=== PATIENT | female | born 1955 | race Caucasian/White ===

== ENCOUNTER 2024-07-29 15:23 | Observation (INO) | payer MEDICARE, SELFPAY ==
[2024-07-29] VITALS (12 sets, daily range): BP systolic 132–142; BP diastolic 70–82; PULSE 86–131; TEMP 36.6–36.8; O2SAT 91–94; BMI 54.9; BMI 56.2
--- NOTE | 2024-07-29 15:26 | ECG_ITS ---
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
--- NOTE | 2024-07-29 15:26 | XR_ITS ---
The [address] [address] Patient Name: TONIO CONN MRN: [id number] date: 1955 Sex: F Assigned Patient Location: ED.MAIN Current Patient Location: ED.MAIN Accession/Order Number: [id number] Exam Date: 07/29/2024 16:40 Report Date: 07/29/2024 18:18 At the request of: GM RODRIGUEZ Procedure: XR chest 1V EXAM: XR chest 1V HISTORY: sob COMPARISON: 10/12/2020 TECHNIQUE: Chest X-ray AP, 1 view FINDINGS: Support devices: None. Lungs/pleura: Right lower lobe airspace opacity, representing pneumonia. No effusion, or pneumothorax. Heart and mediastinum: Normal contours. Bones: No acute abnormality identified. XR/XR chest 1V Impression: Right lower lobar pneumonia. Electronically authenticated by: WILNER LOPEZ Date: 07/29/2024 18:18
[2024-07-29 15:47] LABS: Basophils Percent Auto 0.2 % (0.2-2.0); Hematocrit 41.6 % (36.0-48.0); Hemoglobin 13.6 g/dL (12.0-16.0); Immature Granulocytes Abs Auto 0.01 10^3/uL (0.00-0.03); Immature Granulocytes Pct Auto 0.2 % (0.0-0.5); Lymphocytes Absolute Auto 0.8 10^3/uL (1.2-3.8); Mean Corpuscular HGB Conc 32.7 g/dL (29.9-35.2); Mean Corpuscular Hemoglobin 32.4 pg (26.7-34.0); Mean Platelet Volume 8.8 fL (9.5-13.5); Monocytes Absolute Auto 0.5 10^3/uL (0.3-0.8); Monocytes Percent Auto 8.6 % (1.7-12.0); Neutrophils Absolute Auto 4.6 10^3/uL (1.4-6.5); Platelet Count 195 10^3/uL (150-450); Red Cell Distribution Width 13.2 % (11.0-15.0); White Blood Count 5.9 10^3/uL (4.0-11.0)
[2024-07-29] MEDS: IPRATROPIUM/ALBUTEROL SULFATE 3 ML AMPUL.NEB IH ×3 (15:54→23:39)
[2024-07-29 15:59] LABS: INR 1.09; Prothrombin Time 11.5 sec (9.0-11.6)
[2024-07-29 16:06] LABS: Alanine Aminotransferase 23 U/L (14-59); Albumin Globulin Ratio 0.8; Albumin Level 2.9 g/dL (3.4-5.0); Alkaline Phosphatase 97 U/L (46-116); Anion Gap 12.2; Aspartate Amino Transferase 23 U/L (15-37); BUN Creatinine Ratio 14.7; Bilirubin Total 0.4 mg/dL (0.2-1.0); Calcium 8.5 mg/dL (8.5-10.1); Carbon Dioxide 30.2 mmol/L (21.0-32.0); Chloride 103 mmol/L (98-107); Estimated GFR (African America >60 (>=60 mL/min/1.73m^2); Estimated GFR (Non-African Ame 53 (>=60 mL/min/1.73m^2); Globulin 3.7 g/dL; Glucose 131 mg/dL (74-106); Potassium 4.4 mmol/L (3.5-5.1); Sodium 141 mmol/L (136-145); Total Protein 6.6 g/dL (6.4-8.2)
[2024-07-29 16:14] LABS: Troponin I High Sensitivity 30.8 pg/mL (4.0-51.3)
[2024-07-29] MEDS: METHYLPREDNISOLONE SOD SUCC PF 125 MG/2 ML VIAL IVP ×2 (16:37→20:27)
[2024-07-29] MEDS: MAGNESIUM SULFATE IN WATER 2 GM/50 ML PREMIX IV (16:37)
--- NOTE | 2024-07-29 17:01 | ED.SOB1 ---
HPI - SOB/Dyspnea General Chief Complaint: Shortness of Breath/Dyspnea Stated Complaint: SOB Time Seen by Provider: 07/29/24 15:25 Source: patient Mode of arrival: ambulance Limitations: no limitations History of Present Illness HPI Narrative: The patient have history of asthma is coming to the ER with 3 days of shortness of breath, patient brought to us by the EMS she was found to be wheezing upon arrival and they provided her with a breathing treatment, the patient has been using her inhaler for the last few days and it not helping, he is also have a cough that is productive she is denying any fever or chills or any runny nose She also denies any chest pain or any nausea or vomiting or any abdominal pain Related Data Home Medications ?Medication ?Instructions ?Recorded ?Confirmed apixaban 5 mg tablet (Eliquis) 5 mg PO BID 07/29/24 07/29/24 aspirin 81 mg chewable tablet 1 tab PO DAILY 07/29/24 07/29/24 atorvastatin 40 mg tablet 40 mg PO DAILY 07/29/24 07/29/24 fluoxetine 20 mg capsule 20 mg PO DAILY 07/29/24 07/29/24 hydrochlorothiazide 25 mg tablet 25 mg PO DAILY 07/29/24 07/29/24 lisinopril 40 mg tablet 40 mg PO DAILY 07/29/24 07/29/24 Allergies Allergy/AdvReac Type Severity Reaction Status Date / Time cephalexin (From Keflex) Allergy Unknown Unknown Verified 07/29/24 15:33 ciprofloxacin Allergy Unknown Unknown Verified 07/29/24 15:33 clindamycin Allergy Unknown Unknown Verified 07/29/24 15:33 Review of Systems ROS Status of ROS 10 or more systems reviewed and unremarkable except as noted in history and below PFSH PFSH Social History Little interest or pleasure in doing things: not at all Feeling down, depressed, or hopeless: not at all Exam Narrative Exam Narrative: Nurses notes and vital signs reviewed and patient is not hypoxic. General: Well-appearing and in no apparent distress. Skin: Warm, dry, no pallor noted. No rash. Head: Normocephalic, atraumatic. Neck: Supple, non-tender. Eye: Pupils are equal, round and EOMI. No scleral icterus. Cardiovascular: Regular Rate and Rhythm without murmur, gallop or rub. Respiratory: The patient is tachypneic upon arrival and there is audible wheezes as she have expiratory lung wheezes bilaterally with rhonchi mostly in the right side in the bases. Back: No midline thoracic or lumbar vertebral tenderness. No CVA tenderness Musculoskeletal: normal ROM, no calf or popliteal tenderness, no lower extremity edema/swelling GI: Abdomen is soft, non-distended. Normal bowel sounds. No masses appreciated. No tenderness to palpation. No rebound, guarding, or rigidity noted. Constitutional Vital Signs, click to edit/add: Last Vital Signs Temp 98 F 07/29/24 15:27 Pulse 97 H 07/29/24 16:30 Resp 15 07/29/24 16:30 BP 142/80 H 07/29/24 15:27 Pulse Ox 92 L 07/29/24 16:30 O2 Del Method Room Air 07/29/24 15:27 Course Vital Signs Vital signs: Vital Signs Temperature 98 F 07/29/24 15:27 Pulse Rate 125 H 07/29/24 15:27 Respiratory Rate 28 H 07/29/24 15:27 Blood Pressure 142/80 H 07/29/24 15:27 Pulse Oximetry 93 L 07/29/24 15:27 Oxygen Delivery Method Room Air 07/29/24 15:27 Temperature 98 F 07/29/24 15:27 Pulse Rate 97 H 07/29/24 16:30 Respiratory Rate 15 07/29/24 16:30 Blood Pressure 142/80 H 07/29/24 15:27 Pulse Oximetry 92 L 07/29/24 16:30 Oxygen Delivery Method Room Air 07/29/24 15:27 MDM - SOB/Dyspnea MDM Narrative Medical decision making narrative: The patient presents to us with an obvious moderate asthma exacerbation, ox was 91% and she was tachypneic upon arrival Patient CBC showed no acute pathology chemistry was within normal The patient EKG in the ER showing sinus rhythm with a heart rate of [address] elevation or depression Patient is presenting with an obvious infection that causing asthma exacerbation Chest x-ray shows an obvious right lung infiltrate and the patient was started on azithromycin Patient also provided with Solu-Medrol magnesium IV and 2 breathing treatment including the 1 by the EMS and the patient still audibly wheezing although saturating better Patient will be admitted for further evaluation of asthma exacerbation and pneumonia PT Case discussed with Dr. Marrero and he agreed on admitting the patient for the above-mentioned plan Lab Data Labs: Lab Results 07/29/24 Range/Units 15:38 WBC 5.9 (4.0-11.0) 10^3/uL RBC 4.20 (4.20-5.40) 10^6/uL Hgb 13.6 (12.0-16.0) g/dL Hct 41.6 (36.0-48.0) % MCV 99.0 (81.0-99.0) fL MCH 32.4 (26.7-34.0) pg MCHC 32.7 (29.9-35.2) g/dL RDW 13.2 (11.0-15.0) % Plt Count 195 (150-450) 10^3/uL MPV 8.8 L (9.5-13.5) fL Neut % (Auto) 78.0 H (43.0-75.0) % Lymph % (Auto) 13.0 L (20.5-60.0) % [place] % (Auto) 8.6 (1.7-12.0) % Eos % (Auto) 0.0 L (0.9-7.0) % Baso % (Auto) 0.2 (0.2-2.0) % Neut # (Auto) 4.6 (1.4-6.5) 10^3/uL Lymph # (Auto) 0.8 L (1.2-3.8) 10^3/uL [place] # (Auto) 0.5 (0.3-0.8) 10^3/uL Eos # (Auto) 0.0 (0.0-0.7) 10^3/uL Baso # (Auto) 0.0 (0.0-0.1) 10^3/uL Abs Immat Gran (auto) 0.01 (0.00-0.03) 10^3/uL Imm/Tot Granulo (auto) 0.2 (0.0-0.5) % PT 11.5 (9.0-11.6) sec INR 1.09 Sodium 141 (136-145) mmol/L Potassium 4.4 (3.5-5.1) mmol/L Chloride 103 (98-107) mmol/L Carbon Dioxide 30.2 (21.0-32.0) mmol/L Anion Gap 12.2 BUN 15.0 (7.0-18.0) mg/dL Creatinine 1.02 (0.55-1.02) mg/dL Est GFR ( Amer) >60 (>=60 mL/min/1.73m^2) Est GFR (Non-Af Amer) 53 L (>=60 mL/min/1.73m^2) BUN/Creatinine Ratio 14.7 Glucose 131 H (74-106) mg/dL Calcium 8.5 (8.5-10.1) mg/dL Total Bilirubin 0.4 (0.2-1.0) mg/dL AST 23 (15-37) U/L ALT 23 (14-59) U/L Alkaline Phosphatase 97 (46-116) U/L Troponin I High Sens 30.8 (4.0-51.3) pg/mL Total Protein 6.6 (6.4-8.2) g/dL Albumin 2.9 L (3.4-5.0) g/dL Globulin 3.7 g/dL Albumin/Globulin Ratio 0.8 Discharge Plan Discharge Chief Complaint: Shortness of Breath/Dyspnea Clinical Impression: Asthma exacerbation, Pneumonia Patient Disposition: Admitted As Inpatient Time of Disposition Decision: 17:03
[2024-07-29 17:12] LABS: Influenza Virus A Antigen Negative; Influenza Virus B Antigen Negative; Internal Control Within Normal Limits; SARS-CoV-2 Ag NEGATIVE (NEGATIVE)
[2024-07-29] MEDS: AZITHROMYCIN 500 MG in 0.9 % SODIUM CHLORIDE 250 ML 250 MG IV (17:30)
[2024-07-29 18:48] LABS: Lactate/Lactic Acid 1.4 mmol/L (0.4-2.0)
--- NOTE | 2024-07-29 18:57 | P.HP_ITS ---
HPI H&P: HPI History of Present Illness Chief complaint: SOB Narrative: Patient presented to the emergency with increasing shortness of breath. Found to be tachycardic and respiratory distress is a normal white blood cell count but with a significant left shift, found to have acute exacerbation of asthma is admitted for workup and treatment of same I saw patient in the emergency room, she was resting comfortably in the cot, some mild conversational dyspnea some tachycardia, patient denies chest pain Opioid HPI Opioid Management Most Recent Pain and Opioid Data: No Data to Display [facility] Medical History (Updated 07/29/24 @ 17:34 by Sofya Gaytan RN) Asthma ?J45.909 - Unspecified asthma, uncomplicated (ICD-10) Hypertension ?I10 - Essential (primary) hypertension (ICD-10) Social History Little interest or pleasure in doing things: not at all Feeling down, depressed, or hopeless: not at all Meds Home Medications and Allergies Home Medications ?Medication ?Instructions ?Recorded ?Confirmed ?Type apixaban 5 mg tablet (Eliquis) 5 mg PO BID 07/29/24 07/29/24 History aspirin 81 mg chewable tablet 1 tab PO DAILY 07/29/24 07/29/24 History atorvastatin 40 mg tablet 40 mg PO DAILY 07/29/24 07/29/24 History fluoxetine 20 mg capsule 20 mg PO DAILY 07/29/24 07/29/24 History hydrochlorothiazide 25 mg tablet 25 mg PO DAILY 07/29/24 07/29/24 History lisinopril 40 mg tablet 40 mg PO DAILY 07/29/24 07/29/24 History Allergies Allergy/AdvReac Type Severity Reaction Status Date / Time cephalexin (From Keflex) Allergy Unknown Unknown Verified 07/29/24 15:33 ciprofloxacin Allergy Unknown Unknown Verified 07/29/24 15:33 clindamycin Allergy Unknown Unknown Verified 07/29/24 15:33 Exam Constitutional Vital Signs, click to edit/add: Last Vital Signs Temp 98 F 07/29/24 15:27 Pulse 91 H 07/29/24 17:33 Resp 17 07/29/24 17:33 BP 132/82 07/29/24 17:33 Pulse Ox 92 L 07/29/24 17:33 O2 Del Method Room Air 07/29/24 15:27 Documenting provider has reviewed patient's vital signs: yes Common normals: apparent distress (Mild conversational dyspnea) Respiratory Common normals: abnormal respiratory effort (Mild conversational dyspnea) and not clear to ascultation bilaterally Auscultation: rhonchi and wheezes Cardio Common normals: regular rhythm; irregular rate Rate: tachycardic Results Labs Labs: Short CBC 07/29/24 Range/Units 15:38 WBC 5.9 (4.0-11.0) 10^3/uL Hgb 13.6 (12.0-16.0) g/dL Hct 41.6 (36.0-48.0) % Plt Count 195 (150-450) 10^3/uL BMP 07/29/24 15:38 Sodium 141 Potassium 4.4 Chloride 103 Carbon Dioxide 30.2 BUN 15.0 Creatinine 1.02 Glucose 131 H Calcium 8.5 Liver Function 07/29/24 Range/Units 15:38 Total Bilirubin 0.4 (0.2-1.0) mg/dL AST 23 (15-37) U/L ALT 23 (14-59) U/L Alkaline Phosphatase 97 (46-116) U/L Albumin 2.9 L (3.4-5.0) g/dL Assessment and Plan Assessment and Plan (1) Pneumonia: (2) Asthma exacerbation: Plan Admission findings: Tachycardia, respiratory distress, white blood cell count normal but with significant left shift consistent with bacterial process, due to pneumonia causing an acute exacerbation of asthma Pneumonia with resultant acute exacerbation of asthma-steroids, antibiotics, frequent aerosol treatments, try to obtain sputum culture, consider repeat chest x-ray Long-term use of anticoagulants-continue Hypercholesterolemia continue with current medications Hypertension-continue with current medications Depression-continue current medications Admission status: Patient with acute exacerbation of asthma secondary to pneumonia but no hypoxia will start patient off in the observational time period. If improved tomorrow possible discharge to home tomorrow, if not improved tomorrow then medically necessary treatment will span 2 midnights and she will be changed to inpatient status
[2024-07-30] VITALS (15 sets, daily range): BP systolic 123–155; BP diastolic 68–83; PULSE 20–102; TEMP 36.3–36.9; O2SAT 90–98
[2024-07-30] MEDS: METHYLPREDNISOLONE SOD SUCC PF 125 MG/2 ML VIAL IVP ×4 (03:57→21:15)
[2024-07-30] MEDS: IPRATROPIUM/ALBUTEROL SULFATE 3 ML AMPUL.NEB IH ×6 (04:00→23:40)
--- NOTE | 2024-07-30 05:45 | P.PN_ITS ---
Progress Note: Subjective Subjective Interval history: She does feel somewhat better today. Still with significant cough, has not been up ambulating Exam Constitutional Vital Signs, click to edit/add: Last Vital Signs Temp 97.7 F 07/30/24 04:00 Pulse 80 07/30/24 04:01 Resp 18 07/30/24 04:01 BP 142/79 H 07/30/24 04:00 Pulse Ox 92 L 07/30/24 04:01 O2 Del Method Room Air 07/30/24 04:01 Documenting provider has reviewed patient's vital signs: yes Common normals: no apparent distress (Mild conversational dyspnea resolved) Respiratory Common normals: normal respiratory effort (Mild conversational dyspnea resolved); not clear to ascultation bilaterally Auscultation: rhonchi (Persisting but better air exchange) and wheezes (Better air exchange) Cardio Common normals: regular rhythm; irregular rate Rate: tachycardic Progress Note: Objective Labs Labs: Short CBC 07/29/24 Range/Units 15:38 WBC 5.9 (4.0-11.0) 10^3/uL Hgb 13.6 (12.0-16.0) g/dL Hct 41.6 (36.0-48.0) % Plt Count 195 (150-450) 10^3/uL BMP 07/29/24 15:38 Sodium 141 Potassium 4.4 Chloride 103 Carbon Dioxide 30.2 BUN 15.0 Creatinine 1.02 Glucose 131 H Calcium 8.5 Liver Function 07/29/24 Range/Units 15:38 Total Bilirubin 0.4 (0.2-1.0) mg/dL AST 23 (15-37) U/L ALT 23 (14-59) U/L Alkaline Phosphatase 97 (46-116) U/L Albumin 2.9 L (3.4-5.0) g/dL Progress Note: A&P Assessment and Plan (1) Pneumonia: (2) Asthma exacerbation: Plan Admission findings: Tachycardia, respiratory distress, white blood cell count normal but with significant left shift consistent with bacterial process, due to pneumonia causing an acute exacerbation of asthma Right lower lobe pneumonia with resultant acute exacerbation of asthma-steroids, antibiotics, frequent aerosol treatments, try to obtain sputum culture,-if improved later today possible discharge to home, if not she will need to be changed to inpatient status as medically necessary treatment will span 2 midnights Long-term use of anticoagulants-continue Hyperglycemia secondary to steroids Acute elevation in BNP-improved actually this morning, maintain current treatment plan Hypercholesterolemia continue with current medications Hypertension-continue with current medications Depression-continue current medications Admission status: Patient with acute exacerbation of asthma secondary to pneumonia but no hypoxia will start patient off in the observational time period. If improved tomorrow possible discharge to home tomorrow, if not improved tomorrow then medically necessary treatment will span 2 midnights and she will be changed to inpatient status ?
[2024-07-30 05:51] LABS: Alanine Aminotransferase 24 U/L (14-59); Albumin Globulin Ratio 0.8; Alkaline Phosphatase 99 U/L (46-116); Anion Gap 14.5; Aspartate Amino Transferase 17 U/L (15-37); BUN Creatinine Ratio 17.6; Bilirubin Total 0.3 mg/dL (0.2-1.0); Calcium 8.8 mg/dL (8.5-10.1); Carbon Dioxide 27.4 mmol/L (21.0-32.0); Chloride 103 mmol/L (98-107); Estimated GFR (African America >60 (>=60 mL/min/1.73m^2); Estimated GFR (Non-African Ame 53 (>=60 mL/min/1.73m^2); Globulin 3.9 g/dL; Glucose 199 mg/dL (74-106); Magnesium 2.1 mg/dL (1.8-2.4); Potassium 3.9 mmol/L (3.5-5.1); Sodium 141 mmol/L (136-145); Total Protein 6.9 g/dL (6.4-8.2)
[2024-07-30 06:58] LABS: Hematocrit 43.2 % (36.0-48.0); Hemoglobin 14.1 g/dL (12.0-16.0); Mean Corpuscular HGB Conc 32.6 g/dL (29.9-35.2); Mean Corpuscular Volume 98.2 fL (81.0-99.0); Mean Platelet Volume 9.5 fL (9.5-13.5); Platelet Count 190 10^3/uL (150-450); Red Cell Distribution Width 13.2 % (11.0-15.0); White Blood Count 3.4 10^3/uL (4.0-11.0)
[2024-07-30 07:30] LABS: Lymphocytes Absolute Manual 0.27 10^3/uL (1.20-3.80); Monocytes Absolute Manual 0.13 10^3/uL (0.30-0.80); Segmented Neut Absolute Manual 2.99 10^3/uL (1.4-6.5)
--- NOTE | 2024-07-30 08:33 | CM.NOTE ---
Rounds made with Dr. Marrero. Dr. Marrero reviews plan of care. Potential discharge if HR remains stable and ambulating without issues. Verbalizes understanding.
[2024-07-30] MEDS: ASPIRIN 81 MG TAB.CHEW PO (09:10)
[2024-07-30] MEDS: DILTIAZEM HCL 180 MG CAP.ER.24H PO (09:10)
[2024-07-30] MEDS: FLUOXETINE HCL 20 MG CAPSULE PO (09:10)
[2024-07-30] MEDS: HYDROCHLOROTHIAZIDE 25 MG TABLET PO (09:11)
[2024-07-30] MEDS: LISINOPRIL 20 MG TABLET 40 MG PO (09:11)
[2024-07-30] MEDS: ATORVASTATIN CALCIUM 40 MG TABLET PO (09:11)
[2024-07-30] MEDS: APIXABAN 5 MG TABLET PO ×2 (09:11→21:15)
--- NOTE | 2024-07-30 10:50 | SWNOTE1 ---
Medicare Outpatient Observation Notice reviewed and discussed with patient. Pt. verbalized understanding and signed the form. Original given to patient and copy placed in patient?s chart.
--- NOTE | 2024-07-30 10:51 | SWNOTE1 ---
SW met with pt to discuss dc needs. Pt lives at home alone. She has a neighbor friend who helps as needed. Pt has a walker that she takes with her to the store and restaurants, but normally does not use DME in the home. Pt lives in 2 story home, has a chair lift to go up and down. Lately pt has had her groceries delivered as she feels short of breath when walking around. Pt does still drive. At this time pt's only concern is her shortness of breath. Pt is not on oxygen at this time. She does have an inhaler, as she does have asthma. Pt voiced about 5 years ago she was at hospital for same thing. SW to follow as needed. SW to review therapy notes as well.
--- NOTE | 2024-07-30 11:34 | SWNOTE1 ---
SW reviewed OT note, no needs identified.
--- NOTE | 2024-07-30 13:29 | SWNOTE1 ---
SW reviewed PT note as well and pt independent, no needs identified.
[2024-07-30] MEDS: AZITHROMYCIN 500 MG in 0.9 % SODIUM CHLORIDE 250 ML 125 MG IV (13:46)
[2024-07-31] MEDS: METHYLPREDNISOLONE SOD SUCC PF 125 MG/2 ML VIAL IVP ×2 (03:37→08:03)
[2024-07-31 03:54] VITALS: PULSE 96; O2SAT 94
[2024-07-31] MEDS: IPRATROPIUM/ALBUTEROL SULFATE 3 ML AMPUL.NEB IH ×2 (03:54→07:11)
[2024-07-31 04:00] VITALS: BP 142/79; PULSE 81; TEMP 36.4; O2SAT 93
[2024-07-31 04:04] VITALS: PULSE 80; O2SAT 96
[2024-07-31 05:52] LABS: Hematocrit 41.3 % (36.0-48.0); Hemoglobin 13.6 g/dL (12.0-16.0); Immature Granulocytes Abs Auto 0.02 10^3/uL (0.00-0.03); Immature Granulocytes Pct Auto 0.2 % (0.0-0.5); Lymphocytes Absolute Auto 0.5 10^3/uL (1.2-3.8); Lymphocytes Percent Auto 5.2 % (20.5-60.0); Mean Corpuscular HGB Conc 32.9 g/dL (29.9-35.2); Mean Corpuscular Hemoglobin 31.9 pg (26.7-34.0); Mean Corpuscular Volume 96.7 fL (81.0-99.0); Mean Platelet Volume 9.4 fL (9.5-13.5); Monocytes Absolute Auto 0.1 10^3/uL (0.3-0.8); Monocytes Percent Auto 1.6 % (1.7-12.0); Neutrophils Absolute Auto 8.2 10^3/uL (1.4-6.5); Platelet Count 206 10^3/uL (150-450); Red Blood Count 4.27 10^6/uL (4.20-5.40); Red Cell Distribution Width 13.2 % (11.0-15.0); White Blood Count 8.8 10^3/uL (4.0-11.0)
--- NOTE | 2024-07-31 06:07 | P.DS_ITS ---
DS: Providers Provider Date of admission: 07/30/24 16:00 Primary care physician: Alexander Marrero MD Consults: 07/29/24 18:00 Occupational Therapy Eval and Treat Routine Reason for consultation: Only if needed for Rehab Has provider been notified: No Physical Therapy Eval and Treat Routine Reason for consultation: Eval and Treat Has provider been notified: No DS: Diagnosis Discharge Diagnosis (1) Pneumonia: (2) Asthma exacerbation: Plan Admission findings: Tachycardia, respiratory distress, white blood cell count normal but with significant left shift consistent with bacterial process, due to pneumonia causing an acute exacerbation of asthma Right lower lobe pneumonia with resultant acute exacerbation of asthma-steroids, antibiotics, frequent aerosol treatments, try to obtain sputum culture,-if improved later today possible discharge to home, if not she will need to be changed to inpatient status as medically necessary treatment will span 2 midnights Long-term use of anticoagulants-continue Hyperglycemia secondary to steroids Acute elevation in BNP-improved actually this morning, maintain current treatment plan Hypercholesterolemia continue with current medications Hypertension-continue with current medications Depression-continue current medications Admission status: Patient with acute exacerbation of asthma secondary to pneumonia but no hypoxia will start patient off in the observational time period. If improved tomorrow possible discharge to home tomorrow, if not improved tomorrow then medically necessary treatment will span 2 midnights and she will be changed to inpatient status DS: Summary Hospital Course Hospital Course: Admitted initially to observation status secondary to acute exacerbation of asthma from upper lobe pneumonia on the right side, patient was treated with IV antibiotics, steroids, frequent aerosol treatments, she never became hypoxic but did still have significant dyspnea with activity, was recommended she stay an additional day secondary to the dyspnea and likely potential progression to severe asthma attack, she does not have a home nebulizer currently. She is im proved today. Recommendation was to change patient to inpatient status secondary to medically necessary treatment spanning 2 midnights. Uncertain if that happened. At this point she is medically stable will discharge patient to home in improving condition. Medications see list. And see me in the office either later this week or next, nebulizer and medication sent to pharmacy Status at Discharge Overall status at discharge: patient is not back to baseline Time Spent with Patient Time attestation: Total time spent providing and/or coordinating discharge services: Time spent: greater than 30 minutes Exam Constitutional Vital Signs, click to edit/add: Last Vital Signs Temp 97.5 F L 07/31/24 04:00 Pulse 80 07/31/24 04:04 Resp 18 07/31/24 04:04 BP 142/79 H 07/31/24 04:00 Pulse Ox 96 07/31/24 04:04 O2 Del Method Room Air 07/31/24 04:04 Documenting provider has reviewed patient's vital signs: yes Common normals: no apparent distress (Mild conversational dyspnea resolved) Respiratory Common normals: normal respiratory effort (Mild conversational dyspnea resolved) and clear to auscultation bilaterally (Much improved air exchange, no wheeze but just had breathing treatment) Auscultation: rhonchi (Persisting but better air exchange); no wheezes (Better air exchange) Cardio Common normals: regular rhythm; irregular rate Rate: tachycardic DS: Data Data Completed and Pending Labs on day of discharge: Labs from last 24 hours 07/31/24 07/30/24 05:08 05:17 WBC 8.8 3.4 L RBC 4.27 4.40 Hgb 13.6 14.1 Hct 41.3 43.2 MCV 96.7 98.2 MCH 31.9 32.0 MCHC 32.9 32.6 RDW 13.2 13.2 Plt Count 206 190 MPV 9.4 L 9.5 Neut % (Auto) 93.0 H Lymph % (Auto) 5.2 L [place] % (Auto) 1.6 L Eos % (Auto) 0.0 L Baso % (Auto) 0.0 L Neut # (Auto) 8.2 H Lymph # (Auto) 0.5 L [place] # (Auto) 0.1 L Eos # (Auto) 0.0 Baso # (Auto) 0.0 Abs Immat Gran (auto) 0.02 Seg Neuts % (Manual) 88.0 H Lymphocytes % (Manual) 8.0 L Monocytes % (Manual) 4.0 Eosinophils % (Manual) 0.0 L Basophils % (Manual) 0.0 L Imm/Tot Granulo (auto) 0.2 Neutrophils # (Manual) 2.99 Lymphocytes # (Manual) 0.27 L Monocytes # (Manual) 0.13 L Eosinophils # (Manual) 0.00 Basophils # (Manual) 0.00 NT-Pro-B Natriuret Pep 1635.0 H* Discharge Plan Discharge Disposition: Home, Self-Care Discharge Medications: New prednisone 10 mg tablet 50 mg PO DAILY Qty: 47 0RF Rx Instructions: 5/day for 3 days. 4/day for 3 days, 3/day for 3 days, 2/day for 3 days, 1/day for 3 days, 1/2 /day for 4 days albuterol sulfate [Ventolin HFA] 90 mcg/actuation HFA aerosol inhaler 2 inh inhalation Q6H PRN (Reason: shortness of breath or wheezing) Qty: 8.5 0RF azithromycin 500 mg tablet 500 mg PO DAILY 3 Days Qty: 3 0RF (DME) nebulizer and compressor Device See Rx Instructions .Route Qty: 1 0RF Rx Instructions: As directed albuterol sulfate 2.5 mg/0.5 mL solution for nebulization 2.5 mg inhalation Q6H PRN (Reason: bronchospasm) Qty: 30 11RF Continued Eliquis 5 mg tablet 5 mg PO BID aspirin 81 mg tablet,chewable 1 tab PO DAILY atorvastatin 40 mg tablet 40 mg PO DAILY fluoxetine 20 mg capsule 20 mg PO DAILY hydrochlorothiazide 25 mg tablet 25 mg PO DAILY lisinopril 40 mg tablet 40 mg PO DAILY diltiazem HCl [Cartia XT] 180 mg capsule,extended release 24hr 180 mg PO DAILY Activity: increase activity as tolerated Diet: advance to your usual diet Print Language: Palestinian Patient Instructions: Asthma (DC), Pneumonia (DC) Forms: Portal Instructions Follow Up Appointments: @ 10am with Dr. Marrero [phone] Discharge Date/Time: 07/31/24 11:24
[2024-07-31 06:26] LABS: Potassium 3.5 mmol/L (3.5-5.1); Sodium 139 mmol/L (136-145)
[2024-07-31 06:27] LABS: BUN Creatinine Ratio 26.2; Calcium 9.1 mg/dL (8.5-10.1); Carbon Dioxide 26.5 mmol/L (21.0-32.0); Chloride 103 mmol/L (98-107); Estimated GFR (African America >60 (>=60 mL/min/1.73m^2); Estimated GFR (Non-African Ame 53 (>=60 mL/min/1.73m^2); Glucose 210 mg/dL (74-106)
[2024-07-31 07:13] VITALS: PULSE 89; O2SAT 92
[2024-07-31 07:54] VITALS: BP 155/77; PULSE 74; TEMP 36.6; O2SAT 94
[2024-07-31] MEDS: ACETAMINOPHEN 500 MG TABLET 1000 MG PO (08:07)
--- NOTE | 2024-07-31 08:45 | CM.NOTE ---
Rounds made with Dr. Marrero, pt will discharge to home on P.O antibiotics and nebulizer with treatments. Pt will f/u with PCP.
--- NOTE | 2024-07-31 08:57 | CM.NOTE ---
Dr. 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
--- NOTE | 2024-07-31 09:28 | CM.NOTE ---
Important Message From Medicare discussed with pt, pt verbalizes understanding and signs paper. Original given to pt and copy placed on pt's chart.
[2024-07-31] MEDS: HYDROCHLOROTHIAZIDE 25 MG TABLET PO (10:23)
[2024-07-31] MEDS: ASPIRIN 81 MG TAB.CHEW PO (10:23)
[2024-07-31] MEDS: FLUOXETINE HCL 20 MG CAPSULE PO (10:23)
[2024-07-31] MEDS: ATORVASTATIN CALCIUM 40 MG TABLET PO (10:23)
[2024-07-31] MEDS: DILTIAZEM HCL 180 MG CAP.ER.24H PO (10:24)
[2024-07-31] MEDS: APIXABAN 5 MG TABLET PO (10:24)
[2024-07-31] MEDS: LISINOPRIL 20 MG TABLET 40 MG PO (10:24)
--- NOTE | 2024-08-01 15:06 | CM.DCFOLLOWU ---
Person spoke with:patient How are you feeling?well How is your pain?none Did you understand your discharge instructions?yes Do you have any questions about your discharge instructions? no Were you given any prescriptions at discharge?yes Were you able to get your prescriptions filled?yes Do you understand how to take your medications as ordered?yes Do you have any questions about your follow up appointment and do you plan to keep your follow up appointment? no questions, follow up reviewed Is there anything else that you would like to discuss?no Questions/Comments/Concerns/Other:none
== END 2024-07-31 11:24 | disposition home or self-care (01) ==
LOC: ER 17:49 → MS 07-30 06:01
PROVIDERS: Admitting Provider Family Medicine; Emergency Provider Emergency Medicine; PCP Family Medicine; Visit Provider Family Medicine
DX: J18.9 Pneumonia, unspecified organism (principal); J45.901 Unspecified asthma with (acute) exacerbation; I10 Essential (primary) hypertension; R00.0 Tachycardia, unspecified; R06.03 Acute respiratory distress; Z79.01 Long term (current) use of anticoagulants; E78.00 Pure hypercholesterolemia, unspecified; F32.A Depression, unspecified; R73.9 Hyperglycemia, unspecified; R79.89 Other specified abnormal findings of blood chemistry; T38.0X5A Adverse effect of glucocorticoids and synthetic analogues, initial encounter; R06.02 Shortness of breath
CPT/HCPCS: 36415; 71045; 80048; 80053; 83605; 83735; 83880; 84484; 85007; 85025; 85027; 85610; 87040; 87070; 87804; 87811; 93005; 94640; 94667; 94668; 94761; 96365; 96366; 96367; 96375; 96376; 97165; 99285; G0378; J0456; J2919; J3475

== ENCOUNTER 2024-08-03 17:22 | Inpatient (IN) | payer MEDICARE, SELFPAY ==
[2024-08-03] VITALS (22 sets, daily range): BP systolic 140–163; BP diastolic 88–98; PULSE 68–108; TEMP 36.4–37.2; O2SAT 87–98; BMI 49.9; BMI 54.9
--- NOTE | 2024-08-03 17:29 | XR_ITS ---
The [address] [address] Patient Name: TONIO CONN MRN: [id number] date: 1955 Sex: F Assigned Patient Location: ER Current Patient Location: ER Accession/Order Number: [id number] Exam Date: 08/03/2024 17:42 Report Date: 08/03/2024 18:24 At the request of: NELLY BROWN Procedure: XR chest 1V EXAM: XR chest 1V HISTORY: SOB COMPARISON: 07/29/2024 TECHNIQUE: Chest X-ray AP, 1 view FINDINGS: Support devices: None. Lungs/pleura: Bilateral perihilar cuffing and bilateral hazy opacities, more conspicuous compared to the prior study may represent pulmonary edema or multifocal pneumonia. No pneumothorax. Heart and mediastinum: Normal contours. Bones: No acute abnormality identified. XR/XR chest 1V Impression: Bilateral perihilar cuffing and bilateral hazy opacities, more conspicuous compared to the prior study may represent pulmonary edema or multifocal pneumonia. Electronically authenticated by: WILNER LOPEZ Date: 08/03/2024 18:24
--- NOTE | 2024-08-03 17:29 | ECG_ITS ---
The 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
--- NOTE | 2024-08-03 17:30 | ED.GENADUL1 ---
HPI HPI - General Adult General Chief complaint: Shortness of Breath/Dyspnea Stated complaint: SOB Time Seen by Provider: 08/03/24 17:25 Mode of arrival: ambulance History of Present Illness HPI narrative: 69-year-old female presents for cough and shortness of breath. She had been diagnosed with pneumonia and admitted to this hospital about 5 days ago. 3 days ago which she went home and she finished her antibiotic this morning. She felt worse today. She has been wheezing and she was given an aerosol treatment by the paramedics and she was using her inhaler at home. No hemoptysis and she did not check her temperature at home. Related Data Home Medications ?Medication ?Instructions ?Recorded ?Confirmed apixaban 5 mg tablet (Eliquis) 5 mg PO BID 07/29/24 08/03/24 aspirin 81 mg chewable tablet 1 tab PO DAILY 07/29/24 08/03/24 atorvastatin 40 mg tablet 40 mg PO DAILY 07/29/24 08/03/24 diltiazem HCl 180 mg 180 mg PO DAILY 07/29/24 08/03/24 capsule,extended release 24 hr (Cartia XT) fluoxetine 20 mg capsule 20 mg PO DAILY 07/29/24 08/03/24 hydrochlorothiazide 25 mg tablet 25 mg PO DAILY 07/29/24 08/03/24 lisinopril 40 mg tablet 40 mg PO DAILY 07/29/24 08/03/24 Previous Rx's ?Medication ?Instructions ?Recorded albuterol sulfate 90 mcg/actuation 2 inh inhalation Q6H PRN shortness 07/30/24 aerosol inhaler (Ventolin HFA) of breath or wheezing #8.5 grams prednisone 10 mg tablet 50 mg (5 x 10 mg) PO DAILY #47 tabs 07/30/24 albuterol sulfate 2.5 mg/0.5 mL 2.5 mg (0.5 mL) inhalation Q6H PRN 07/31/24 solution for nebulization bronchospasm #30 ea nebulizer and compressor #1 ea 07/31/24 Allergies Allergy/AdvReac Type Severity Reaction Status Date / Time clindamycin Allergy Intermediate Hives Verified 07/29/24 20:47 cephalexin (From Keflex) Allergy Unknown Hives Verified 08/03/24 17:24 ciprofloxacin Allergy Unknown Unknown Verified 08/03/24 17:24 Opioid HPI Opioid Management Most Recent Opioid Data: Last Pain Scale 0 07/31/24 10:31 07/31/24 Last Pain Assessment 07/31/24 11:15 Last ORT Total Score 0 07/29/24 19:14 07/29/24 Last ORT Risk Category Low Risk 07/29/24 19:14 07/29/24 Review of Systems ROS Narrative A ten point review of systems is negative except as noted above. PFSH PFS Medical History (Updated 08/03/24 @ 18:34 by Joaquin Dale MD) Asthma ?J45.909 - Unspecified asthma, uncomplicated (ICD-10) Hypertension ?I10 - Essential (primary) hypertension (ICD-10) Surgical History (Updated 07/29/24 @ 23:19 by Pooja Cantrell, RN) H/O carotid endarterectomy ?Z98.890 - Other specified postprocedural states (ICD-10) Family History (Updated 07/29/24 @ 20:30 by Pooja Cantrell, RN) Other Family history of CHF (congestive heart failure) Family history of hypertension Family history of stroke Social History (Updated 07/29/24 @ 20:31 by Pooja Cantrell, RN) Within the past year, how often did you have a drink containing alcohol: monthly or less Within the past year, how many standard drinks containing alcohol did you have on a typical day: 1 or 2 Within the past year, how often did you have six or more drinks on one occasion: never Total score: 0 Score interpretation: A score less than 3 is consistent with normal alcohol consumption. Smoking status: Former smoker Non-prescribed substance use: denies use Highest level of school completed/degree received: Bachelor's degree In a typical week, how many times do you talk on the telephone with family, friends, or neighbors: 3 or more times per week How often do you get together with friends or relatives: 3 or more times per week Little interest or pleasure in doing things: not at all Feeling down, depressed, or hopeless: not at all Do you think of yourself as: straight/heterosexual Gender Identity: female Exam Narrative Exam Narrative: Nurses note and vital signs reviewed and patient is not hypoxic. General: The patient appears well and in no apparent distress. Patient is resting comfortably on cart. Skin: Warm, dry, no pallor noted. There is no rash noted. Head: Normocephalic, atraumatic Eye: Normal conjunctiva, no drainage Ears, Nose, Mouth, and Throat: oral mucosa is moist. Nares patent. Cardiovascular: Irregularly irregular Respiratory: Bilateral rhonchi throughout Back: non-tender, no CVA tenderness bilaterally to percussion. GI: Normal bowel sounds, no tenderness to palpation, no masses appreciated. No rebound, guarding, or rigidity noted. Musculoskeletal: The patient has no evidence of calf tenderness, no pitting edema, symmetrical pulses noted bilaterally Neurological: A&O, normal speech Psychiatric: Cooperative Constitutional Vital Signs, click to edit/add: Last Vital Signs Temp 97.7 F 08/03/24 17:24 Pulse 96 H 08/03/24 18:09 Resp 18 08/03/24 18:09 BP 140/93 H 08/03/24 17:24 Pulse Ox 95 08/03/24 18:09 O2 Del Method Nasal Cannula 08/03/24 18:09 O2 Flow Rate 1.5 08/03/24 18:09 Course Vital Signs Vital signs: Vital Signs Temperature 97.7 F 08/03/24 17:24 Pulse Rate 76 08/03/24 17:24 Respiratory Rate 24 H 08/03/24 17:24 Blood Pressure 140/93 H 08/03/24 17:24 Pulse Oximetry 87 L 08/03/24 17:24 Oxygen Delivery Method Room Air 08/03/24 17:24 Temperature 97.7 F 08/03/24 17:24 Pulse Rate 96 H 08/03/24 18:09 Respiratory Rate 18 08/03/24 18:09 Blood Pressure 140/93 H 08/03/24 17:24 Pulse Oximetry 95 08/03/24 18:09 Oxygen Delivery Method Nasal Cannula 08/03/24 18:09 Oxygen Delivery Flow Rate 1.5 08/03/24 18:09 Medical Decision Making MDM Narrative Medical decision making narrative: Chest x-ray is consistent with heart failure and she was given IV Lasix. Blood cultures were obtained but at this point I do not feel that this is pneumonia. She gives no history of CHF. She is being admitted to the hospital. Treatment diagnosis and disposition were discussed with the patient. Differential Diagnosis Differential Diagnosis: CHF, pneumonia, COVID, influenza Medical Records Medical records reviewed: Yes I reviewed the patient's medical records Lab Data Lab results reviewed: Yes I reviewed the patient's lab results Labs: Lab Results 08/03/24 08/03/24 Range/Units 17:30 17:35 WBC 9.6 (4.0-11.0) 10^3/uL RBC 4.53 (4.20-5.40) 10^6/uL Hgb 14.5 (12.0-16.0) g/dL Hct 43.2 (36.0-48.0) % MCV 95.4 (81.0-99.0) fL MCH 32.0 (26.7-34.0) pg MCHC 33.6 (29.9-35.2) g/dL RDW 12.8 (11.0-15.0) % Plt Count 218 (150-450) 10^3/uL MPV 9.2 L (9.5-13.5) fL Neut % (Auto) 90.9 H (43.0-75.0) % Lymph % (Auto) 5.9 L (20.5-60.0) % [place] % (Auto) 2.3 (1.7-12.0) % Eos % (Auto) 0.0 L (0.9-7.0) % Baso % (Auto) 0.1 L (0.2-2.0) % Neut # (Auto) 8.8 H (1.4-6.5) 10^3/uL Lymph # (Auto) 0.6 L (1.2-3.8) 10^3/uL [place] # (Auto) 0.2 L (0.3-0.8) 10^3/uL Eos # (Auto) 0.0 (0.0-0.7) 10^3/uL Baso # (Auto) 0.0 (0.0-0.1) 10^3/uL Abs Immat Gran (auto) 0.08 H (0.00-0.03) 10^3/uL Imm/Tot Granulo (auto) 0.8 H (0.0-0.5) % Sodium 142 (136-145) mmol/L Potassium 3.6 (3.5-5.1) mmol/L Chloride 100 (98-107) mmol/L Carbon Dioxide 34.8 H (21.0-32.0) mmol/L Anion Gap 10.8 BUN 20.0 H (7.0-18.0) mg/dL Creatinine 1.06 H (0.55-1.02) mg/dL Est GFR ( Amer) >60 (>=60 mL/min/1.73m^2) Est GFR (Non-Af Amer) 51 L (>=60 mL/min/1.73m^2) BUN/Creatinine Ratio 18.9 Glucose 196 H (74-106) mg/dL Calcium 9.1 (8.5-10.1) mg/dL Troponin I High Sens 12.1 (4.0-51.3) pg/mL NT-Pro-B Natriuret Pep 2169.0 H* (<=900.0) pg/mL Influenza Type A Ag Negative Influenza Type B Ag Negative SARS-CoV-2 Ag (CV2AG) Negative (NEGATIVE) Imaging Data Chest x-ray: Radiologist's impression: ITS Impressions Chest X-Ray 08/03/24 17:29 Impression: Bilateral perihilar cuffing and bilateral hazy opacities, more conspicuous compared to the prior study may represent pulmonary edema or multifocal pneumonia. Electronically authenticated by: WILNER LOPEZ Date: 08/03/2024 18:24 ECG Data Attestation: I personally reviewed and interpreted this ECG as follows: ([id number], interpretation shows sinus tachycardia with a rate of 100 and PACs) Critical Care Time Critical Care Time Critical Care Time: Yes Total Critical Care Time: 35 Attestation: Due to the high probability of sudden and clinically significant deterioration in the patient's condition he/she required the highest level of my preparedness to intervene urgently I provided critical care time including documentation time, medication orders and management, reevaluation, vital sign assessment, ordering and reviewing of lab tests, ordering and reviewing of x-ray studies, and admission orders. Aggregate critical care time is 35 minutes including only time during which I was engaged in work directly related to his/her care and did not include time spent treating other patients simultaneously. Discharge Plan Discharge Chief Complaint: Shortness of Breath/Dyspnea Clinical Impression: Congestive heart failure Patient Disposition: Admitted As Inpatient Time of Disposition Decision: 18:34 Condition: Fair
--- OUTSIDE RECORDS SUMMARY | 2024-08-03 17:30 | XMS_ITS | CCD ---
Author Organization [facility] Care Team Providers Care Skidder Runner Name Role Phone Ellen Marrero Primary Care Provider [phone] ELLEN MARRERO Primary Care Unavailable KWESI WATTS Attending Unavailable Arnol Demarco Unavailable FREDERIC, DR HUGHES Primary Care Unavailable SAMSA, ASHLEY Admitting Unavailable SAMSA, ASHLEY Attending Unavailable FREDERIC, DR HUGHES Primary Care Unavailable HOY, DR HUGHES Admitting Unavailable HOY, DR HUGHES Attending Unavailable FREDERIC, DR HUGHES Primary Care Unavailable HOY, DR HUGHES Admitting Unavailable HOCaleb, DR HUGHES Attending Unavailable HOY, DR HUGHES Consulting Unavailable SAMSA, ASHLEY Attending Unavailable SAMSA, ASHLEY Admitting Unavailable FREDERIC, DR HUGHES Primary Care Unavailable Doreen Rhodes Unavailable Ellen Marrero MD Primary Care Provider KOLE ELLISON Attending Unavailable KOLE ELLISON Attending Unavailable KOLE ELLISON Attending Unavailable KLOE ELLISON Attending Unavailable KOLE ELLISON Attending Unavailable Allergies Allergy Classification Reported Allergen(s) Allergy Type Date of Onset Reaction(s) Facility (5 sources) Cephalexin Drug Allergy 06-16-20 19 [place] (3 sources) Ciprofloxacin Drug Allergy 08-15-19 20 Shortness Of Breath [place] (1 source) Quinolones (Antibiotic) Propensity to adverse reactions to drug 08-15-19 20 [place] (4 sources) Cephalexin; Translations: [Keflex] Drug Allergy 06-16-20 19 shortness of breath [facility] (2 sources) Quinolones (Antibiotic) Propensity to adverse reactions shortness of breath [employer] Other (2 sources) Ciprofloxacin Drug Allergy 06-16-20 19 [facility] (4 sources) Quinolones (Antibiotic) Drug Intolerance 08-15-19 20 Shortness of breath [facility] Medications Current Medications Medication Drug Class(es) Dates Sig (Normalized) Sig (Original) Anoro Ellipta (2 sources) Anoro Ellipta Ac tive apixaban (5 sources) Factor Xa Inhibitor Eliquis Active apixaban (ELIQUI S) 5 MG TABS tablet Eliquis 5 mg tablet 0 Active atorvastatin (2 sources) HMG-CoA Reductase Inhibitor Atorvastatin Calcium Active celecoxib 200 mg oral capsule (2 sources) Nonsteroidal Anti-inflammatory Drug take 1 capsule by mouth every twenty-four hours Celecoxib 200 MG 1 capsule with food Orally Once a day Active 24 hr dilTIAZem hydrochloride 240 mg extended release oral capsule (7 sources) Calcium Channel Pal take 1 capsule by mouth once daily dilTIAZem XR (Dilacor XR) 240 MG 24 hr capsule Take 240 mg by mouth 1 (one) time each day at the same time. Active take 1 capsule by [facility] every twenty-four hours Cartia XT 180 MG 1 capsule Orally Once a day Active Elastic Bandages & Supports (ANKLE SUPPORT/FIGURE-8 LARGE) MISC (1 source) Start: 08-15-2019 Elastic Bandages & Supports (ANKLE SUPPORT/FIGURE-8 LARGE) MISC 1 each by Does not apply route daily Left ankle support with velcro wraps. 1 each 0 08/15/2019 Active FLUoxetine 20 mg oral capsule (7 sources) Serotonin Reuptake Inhibitor take 1 capsule by mouth in the morning FLUoxetine (PROzac) 20 MG capsule Take 20 mg by mouth in the morning. Active FLUoxetine HCl A ctive FLUoxetine (PROZ AC) 20 MG tablet fluoxetine 20 mg capsule 0 Active 30 actuat fluticasone furoate 0.1 mg/actuat / umeclidinium 0.0625 mg/actuat / vilanterol 0.025 mg/actuat dry powder inhaler (4 sources) Anticholinergic, Corticosteroid, beta2-Adrenergic Agonist Start: 11-08-2022 Trelegy Ellipta 100-62.5-25 MCG/ACT aerosol powder Inhale 100 Inhalation in the morning. 11/08/2022 Active Furosemide (3 sources) Loop Diuretic furosemide (LASI X) 40 MG tablet furosemide 40 mg tablet 0 Active hydrALAZINE hydrochloride 50 mg oral tablet (7 sources) Arteriolar Vasodilator take 1 tablet by mouth every eight hours hydrALAZINE (Apresoline) 50 MG tablet Take 50 mg by mouth every 8 (eight) hours. Active hydroCHLOROthiazide 25 mg oral tablet (6 sources) Thiazide Diuretic take 1 tablet by mouth in the morning hydroCHLOROthiazide (HYDRODiuril) 25 MG tablet Take 25 mg by mouth in the morning. Active hydroCHLOROthiaz yasir Active 3 ml insulin glargine 100 unt/ml pen injector (5 sources) Insulin Analog inject 100 [IU] by subcutaneous injection in the morning insulin glargine (Lantus) 100 UNIT/ML pen Inject 100 Units under the skin in the morning. Active insulin glargine (LANTUS SOLOSTAR) 100 UNIT/ML injection pen Lantus Solostar U-100 Insulin 100 unit/mL (3 mL) subcutaneous pen 0 Active lisinopril 40 mg oral tablet (7 sources) Angiotensin Converting Enzyme Inhibitor take 1 tablet by mouth in the morning lisinopril 40 MG tablet Take 40 mg by mouth in the morning. Active Lisinopril Activ e predniSONE 20 mg oral tablet (1 source) predniSONE (DELT ASONE) 20 MG tablet prednisone 20 mg tablet 0 Active Promethazine (2 sources) Phenothiazine RA Pen [place] (2 sources) RA Pen [place] A ctive Spironolactone (3 sources) Aldosterone Antagonist spironolactone ( ALDACTONE) 25 MG tablet spironolactone 25 mg tablet 0 Active 30 actuat umeclidinium 0.0625 mg/actuat / vilanterol 0.025 mg/actuat dry powder inhaler (1 source) Anticholinergic, beta2-Adrenergic Agonist umeclidinium-vi lanterol (ANORO ELLIPTA) 62.5-25 MCG/INH AEPB inhaler Anoro Ellipta 62.5 mcg-25 mcg/actuation powder for inhalation 0 Active Completed/Discontinued Medications Medication Drug Class(es) Dates Sig (Normalized) Sig (Original) aspirin 81 mg chewable tablet (3 sources) Platelet Aggregation Inhibitor, Nonsteroidal Anti-inflammatory Drug Start: 08-15-2019 End: 08-15-2019 aspirin chewable tablet 324 mg take 1 tablet by nicole th every twenty-four hours Aspirin 81 MG 1 tablet Orally Once a day Active Problems Active Problems Problem Classification Problem Date Documented Da te Episodic/Chronic Cardiac dysrhythmias (1 source) Paroxysmal atrial fibrillation; Translations: [Paroxysmal atrial fibrillation] Onset: 07-03-2019 08-15-2019 Chronic Chronic obstructive pulmonary disease and bronchiectasis (4 sources) Chronic obstructive pulmonary disease, unspecified; Translations: [COPD UNSPECIFIED] Onset: 02-03-2022 Chronic Congestive heart failure; nonhypertensive (1 source) Congestive heart failure; Translations: [Congestive heart failure] Onset: 07-03-2019 08-15-2019 Chronic Diabetes mellitus without complication (2 sources) Type 2 diabetes mellitus without complication; Translations: [Type 2 diabetes mellitus without complications] 05-26-2024 Chronic Essential hypertension (1 source) Essential hypertension; Translations: [Essential hypertension] Onset: 07-03-2019 08-15-2019 Chronic Mycoses (2 sources) Onychomycosis; Translations: [Tinea unguium] 05-26-2024 Episodic Occlusion or stenosis of precerebral arteries (4 sources) Bilateral stenosis of carotid arteries; Translations: [Occlusion and stenosis of bilateral carotid arteries] Onset: 11-04-2021 Resolved: 11-04-2021 Chronic Other circulatory disease (2 sources) Disorder of carotid artery; Translations: [Disorder of arteries and arterioles, unspecified] Chronic Other connective tissue disease (1 source) Pain of toe of left foot; Translations: [Pain in left toe(s)] 05-26-2024 Episodic Other connective tissue disease (1 source) Pain of toe of right foot; Translations: [Pain in right toe(s)] 05-26-2024 Episodic Other skin disorders (2 sources) Asteatosis cutis; Translations: [Xerosis cutis] 05-26-2024 Episodic Pneumonia (except that caused by tuberculosis or sexually transmitted disease) (1 source) Community acquired pneumonia; Translations: [Community acquired pneumonia] Onset: 07-03-2019 08-15-2019 Episodic Residual codes; unclassified (4 sources) Obstructive sleep apnea (adult) (pediatric); Translations: [OBSTRUCTIVE SLEEP APNEA] Onset: 07-13-2021 Chronic Residual codes; unclassified (1 source) Idiopathic hypersomnia with long sleep time; Translations: [IDIO HYPERSOMNIA W/LONG SLEEP TIME] Onset: 07-15-2021 Chronic Viral infection (1 source) COVID-19; Translations: [COVID-19] Onset: 02-07-2022 Past or Other Problems Problem Classification Problem Date Documented Da te Episodic/Chronic Other connective tissue disease (1 source) Pain of toes of bilateral feet; Translations: [Pain in right toe(s)] 02-18-2024 Episodic Results Test Name Value Interpretation Reference Range [facility] SARS-CoV-2 (COVID-19) RNA NAHOMY+probe Ql (Unsp spec) Detected Critically abnormal NOT DETECTED [facility] Comment on above: Result Comment: This test is not yet approved or cleared by the [place] FDA. When there are no FDA-approved or cleared tests available, and other criteria are met, FDA can make tests available under an emergency access mechanism called an Emergency Use Authorization (EUA). The EUA for this test is supported by the [place] of Health and Human Service's (HHS's) declaration that circumstances exist to justify the emergency use of in vitro diagnostics for the detection and/or diagnosis of the virus that causes COVID-19. This EUA will remain in effect (meaning this test can be used) for the duration of the COVID-19 declaration justifying emergency of IVDs, unless it is terminated or revoked by FDA (after which the test may no longer be used). Performed By: #### C [facility] #### [facility] [address] [place] [address] Dr. [place] US carotid doppler BIon 10-17 US carotid doppler BI [facility] [place] [address] Ultrasound Report Signed Patient: Georgiana Conn MR#: [id number] : 1955 Acct:[id number] Age/Sex: 66 / F ADM Date: 11/04/21 Loc: [facility] Room: Type: [facility] Attending Dr: Arnol Demarco MD Ordering Provider: Arnol Demarco MD Date of Service: 11/04/21 US/US carotid doppler BI: I65.23 Copies to: Arnol Demarco MD CAROTID DUPLEX INDICATION: Carotid bruit PROCEDURE: Color-flow duplex scanning is used to interrogate the extracranial carotid arterial system, as well as both vertebral arteries. The proximal right internal carotid artery shows a highest peak systolic velocity of 95.6 cm/s with an end-diastolic velocity of 25.9 cm/s . The mid internal carotid artery measures 154 cm/s peak systolic with an end-diastolic velocity of 42.7 cm/s . The distal segment measures 98.8 cm/s peak systolic with an end diastolic velocity of 30 cm/s . The velocities of the right common carotid artery are 91.1 cm/s peak systolic and 14 cm/s end- diastolic proximally and 102 cm/s peak systolic and 25.2 cm/s end-diastolic distally. The peak systolic velocity ratio of the internal to the common carotid artery is 1.51 . The right external carotid artery measures 174 cm/s peak systolic. The right vertebral artery is patent at 59.8 cm/s peak systolic and with antegrade flow. The proximal left internal carotid artery shows a highest peak systolic velocity of 74.6 cm/s with an end-diastolic velocity of 25.5 cm/s . The mid internal carotid artery measures 102 cm/s peak systolic with an end-diastolic velocity of 30.8 cm/s . The distal segment measures 84.1 cm/s peak systolic with an end diastolic velocity of 28.7 cm/s . The velocities of the left common carotid artery are 131 cm/s peak systolic and 35.8 cm/s end-diastolic proximally and 81.4 cm/s peak systolic and 16.8 cm/s end-diastolic distally. The peak systolic velocity ratio of the internal to the common carotid artery is 1.25 . The left external carotid artery measures 104 cm/s peak systolic. The left vertebral artery is patent at 51.8 cm/s peak systolic with antegrade flow. US/US carotid doppler BI IMPRESSION: NO HEMODYNAMICALLY SIGNIFICANT STENOSIS OF EITHER EXTRACRANIAL INTERNAL CAROTID ARTERY. BOTH VERTEBRAL ARTERIES ARE PATENT WITH ANTEGRADE FLOW. This interpretation is based on the new criteria by the IAC vascular testing recommendations for carotid stenoses interpretation criteria Impression dictated by: Arnol Demarco MD11/04/2021 3:57 PM Dictation Location: [place] [address] Tech: Mary Bryant Transcribed By: KINJAL 11/04/21 [id number] Dictated By: Arnol Demarco MD 11/04/21 0737 Signed By: 11/04/21 1556 [facility] Basic Metab w/rfx MGon 08-15 (cont.) Normal [facility] Comment on above: Result Comment: Aver age GFR for 60-69 years old: 85 mL/min/1.73sq m Chronic Kidney Disease: <60 mL/min/1.73sq m Kidney failure: <15 mL/min/1.73sq m eGFR calculated using average adult body mass. Additional eGFR calculator available at: http://www.[employer]/multiple_crcl_2012.htm Performed By: #### C DP, BMPX, TROPI #### [facility] [address] [place], [place] [phone] [employer] Operator: Gonzalez Jackson MD Anion gap [Moles/Vol] 21 mmol/L High 9-17 [facility] Comment on above: Performed By: #### C DP, BMPX, TROPI #### [facility] [address] [place], [place] [phone] [employer] Operator: Gonzalez Jackson MD BUN/CRE Ratio 32 [facility] 9-20 [facility] Comment on above: Performed By: #### C DP, BMPX, TROPI #### [facility] [address] [place], [place] [phone] [employer] Operator: Gonzalez Jackson MD Calcium [Mass/Vol] 10.3 mg/dL Normal 8.6-10.4 [facility] Comment on above: Performed By: #### C DP, BMPX, TROPI #### [facility] [address] [place], [place] [phone] [employer] Operator: Gonzalez Jackson MD Chloride [Moles/Vol] 100 mmol/L Normal 98-107 [facility] Comment on above: Performed By: #### C DP, BMPX, TROPI #### [facility] [address] [place], [place] [phone] [employer] Operator: Gonzalez Jackson MD CO2 [Moles/Vol] 22 mmol/L Normal 20-31 [facility] Comment on above: Performed By: #### C DP, BMPX, TROPI #### [facility] [address] [place] [address] [employer] Operator: Gonzalez Jackson MD Creatinine [Mass/Vol] 1.48 mg/dL High 0.50-0.90 [facility] Comment on above: Performed By: #### C DP, BMPX, TROPI #### [facility] [address] [place] [address] [employer] Operator: Gonzalez Jackson MD GFR, Amer 43 mL/min Low >60 [facility] Comment on above: Performed By: #### C DP, BMPX, TROPI #### [facility] [address] [place] [address] [employer] Operator: Gonzalez Jackson MD GFR,non Amer 35 mL/min Low >60 [facility] Comment on above: Performed By: #### C DP, BMPX, TROPI #### [facility] [address] [place] [address] [employer] Operator: Gonzalez Jackson MD Glucose [Mass/Vol] 140 mg/dL High 70-99 [facility] Comment on above: Performed By: #### C DP, BMPX, TROPI #### [facility] [address] [place] [address] [employer] Operator: Gonzalez Jackson MD Potassium [Moles/Vol] 5.0 mmol/L Normal 3.7-5.3 [facility] Comment on above: Performed By: #### C DP, BMPX, TROPI #### [facility] [address] [place] [address] [employer] Operator: Gonzalez Jackson MD Sodium [Moles/Vol] 143 mmol/L Normal 135-144 [facility] Comment on above: Performed By: #### C DP, BMPX, TROPI #### [facility] [address] [place], [place] [id number] [employer] Operator: Gonzalez Jackson MD Urea nitrogen [Mass/Vol] 48 mg/dL High 8-23 [facility] Comment on above: Performed By: #### C DP, BMPX, TROPI #### [facility] [address] [place], [place] [phone] [employer] Operator: Gonzalez Jackson MD Staging: NOT REPORTED Normal [facility] Comment on above: Performed By: #### C DP, BMPX, TROPI #### [facility] [address] [place] [address] [employer] Operator: Gonzalez Jackson MD Basic Metabolic Panel w/ Ref odilia to MGon 08-15-2019 Anion gap [Moles/Vol] 21 mmol/L High 9 - 17 mmol/L [place] Bun/Cre Ratio 32 [place] Calcium [Mass/Vol] 10.3 mg/dL 8.6 - 10. 4 mg/dL [place] Chloride [Moles/Vol] 100 mmol/L 98 - 107 mmol/L [place] CO2 [Moles/Vol] 22 mmol/L 20 - 31 mmol/L [place] Creatinine [Mass/Vol] 1.48 mg/dL High 0.5 - 0.9 mg/dL [place] GFR 43 mL/min Low >60 [place] GFR Non- 35 mL/min Low >60 [place] GFR/1.73 sq M predicted among non-blacks MDRD (S/P/Bld) [Vol rate/Area] [place] Comment on above: Average GFR for 60-6 9 years old: 85 mL/min/1.73sq m Chronic Kidney Disease: <60 mL/min/1.73sq m Kidney failure: <15 mL/min/1.73sq m eGFR calculated using average adult body mass. Additional eGFR calculator available at: http://www.[employer]/multiple_crcl_2012.htm GFR/1.73 sq M predicted among non-blacks MDRD (S/P/Bld) [Vol rate/Area] NOT REPORTED [place] Glucose [Mass/Vol] 140 mg/dL High 70 - 99 mg/dL [place] Interpretation and review of laboratory results Abnormal [place] Potassium [Moles/Vol] 5.0 mmol/L 3.7 - 5.3 mmol/L [place] Sodium [Moles/Vol] 143 mmol/L 135 - 144 mmol/L [place] Urea nitrogen [Mass/Vol] 48 mg/dL High 8 - 23 mg/dL [place] CBC Auto Differentialon 07-21 Basophils (Bld) [#/Vol] 0.10 10*3/uL [place] Basophils/100 WBC (Bld) 1 % 0 - 2 % [place] Differential Type YES [place] Eosinophils (Bld) [#/Vol] 0.00 10*3/uL [place] Eosinophils/100 WBC (Bld) 1 % 0 - 5 % [place] Erythrocyte distribution width (RBC) [Ratio] 18.3 % High 12.1 - 15.2 % [place] Hematocrit (Bld) [Volume fraction] 36.9 % 36 - 46 % [place] Hemoglobin (Bld) [Mass/Vol] 12.1 g/dL 12 - 16 g/dL [place] Interpretation and review of laboratory results Abnormal [place] Lymphocytes (Bld) [#/Vol] 3.50 10*3/uL [place] Lymphocytes/100 WBC (Bld) 35 % 15 - 40 % [place] MCH (RBC) [Entitic mass] 31.1 pg 26 - 34 pg [place] MCHC (RBC) [Mass/Vol] 32.9 g/dL 31 - 37 g/dL [place] MCV (RBC) [Entitic vol] 94.6 fL 80 - 100 fL [place] Monocytes (Bld) [#/Vol] 0.70 10*3/uL [place] Monocytes/100 WBC (Bld) 7 % 4 - 8 % [place] Platelet mean volume (Bld) [Entitic vol] NOT REPORTED 6 - 12 fL [place] Platelets (Bld) [#/Vol] 309 10*3/uL [place] Platelets (Bld) [#/Vol] NOT REPORTED [place] RBC (Bld) [#/Vol] 3.90 10*6/uL Low 4 - 5.2 m/uL [place] RBC morphology finding Nom (Bld) NOT REPORTED [place] Segmented neutrophils/100 WBC (Bld) 56 % 47 - 75 % [place] Segs Absolute 5.80 [place] WBC (Bld) [#/Vol] NOT REPORTED per 100 WBC [place] WBC (Bld) [#/Vol] 10.1 10*3/uL [place] WBC Morphology NOT REPORTED [place] CBC with Diffon 08-15-2019 Abs. Basophil 0.10 k/uL Normal 0.0-0.2 [facility] Comment on above: Performed By: #### C DP, BMPX, TROPI #### [facility] [address] [place] [address] [employer] Operator: Gonzalez Jackson MD Abs.Neutrophil (Seg) 5.80 k/uL Normal 2.5-7.0 [facility] Comment on above: Performed By: #### C DP, BMPX, TROPI #### [facility] [address] [place] [address] [employer] Operator: Gonzalez Jackson MD Auto Diff Performed YES Normal [facility] Comment on above: Performed By: #### C DP, BMPX, TROPI #### [facility] [address] [place] [address] [employer] Operator: Gonzalez Jackson MD Basophils/100 WBC (Bld) 1 % Normal 0-2 [facility] Comment on above: Performed By: #### C DP, BMPX, TROPI #### [facility] [address] [place] [address] [employer] Operator: Gonzalez Jackson MD Eosinophils (Bld) [#/Vol] 0.00 10*3/uL Normal 0.0-0.4 [facility] Comment on above: Performed By: #### C DP, BMPX, TROPI #### [facility] [address] [place] [phone] [employer] Operator: Gonzalez Jackson MD Eosinophils/100 WBC (Bld) 1 % Normal 0-5 [facility] Comment on above: Performed By: #### C DP, BMPX, TROPI #### [facility] [address] [place] [phone] [employer] Operator: Gonzalez Jackson MD Erythrocyte distribution width (RBC) [Ratio] 18.3 % High 12.1-15.2 [facility] Comment on above: Performed By: #### C DP, BMPX, TROPI #### [facility] [address] [place] [phone] [employer] Operator: Gonzalez Jackson MD Hematocrit (Bld) [Volume fraction] 36.9 % Normal 36-46 [facility] Comment on above: Performed By: #### C DP, BMPX, TROPI #### [facility] [address] [place] [phone] [employer] Operator: Gonzalez Jackson MD Hemoglobin (Bld) [Mass/Vol] 12.1 g/dL Normal 12.0-16.0 [facility] Comment on above: Performed By: #### C DP, BMPX, TROPI #### [facility] [address] [place] [phone] [employer] Operator: Gonzalez Jackson MD Lymphocytes (Bld) [#/Vol] 3.50 10*3/uL Normal 1.0-4.8 [facility] Comment on above: Performed By: #### C DP, BMPX, TROPI #### [facility] [address] [place] [address] [employer] Operator: Gonzalez Jackson MD Lymphocytes/100 WBC (Bld) 35 % Normal 15-40 [facility] Comment on above: Performed By: #### C DP, BMPX, TROPI #### [facility] [address] [place] [phone] [employer] Operator: Gonzalez Jackson MD MCH (RBC) [Entitic mass] 31.1 pg Normal 26-34 [facility] Comment on above: Performed By: #### C DP, BMPX, TROPI #### [facility] [address] [place] [phone] [employer] Operator: Gonzalez Jackson MD MCHC (RBC) [Mass/Vol] 32.9 g/dL Normal 31-37 [facility] Comment on above: Performed By: #### C DP, BMPX, TROPI #### [facility] [address] [place] [address] [employer] Operator: Gonzalez Jackson MD MCV (RBC) [Entitic vol] 94.6 fL Normal 80-100 [facility] Comment on above: Performed By: #### C DP, BMPX, TROPI #### [facility] [address] [place] [phone] [employer] Operator: Gonzalez Jackson MD Monocytes (Bld) [#/Vol] 0.70 10*3/uL Normal 0.0-1.0 [facility] Comment on above: Performed By: #### C DP, BMPX, TROPI #### [facility] [address] [place] [address] [employer] Operator: Gonzalez Jackson MD Monocytes/100 WBC (Bld) 7 % Normal 4-8 [facility] Comment on above: Performed By: #### C DP, BMPX, TROPI #### [facility] [address] [place] [address] [employer] Operator: Gonzalez Jackson MD Neutrophil (Seg) 56 % Normal 47-75 [facility] Comment on above: Performed By: #### C DP, BMPX, TROPI #### [facility] [address] [place] [address] [employer] Operator: Gonzalez Jackson MD Platelets (Bld) [#/Vol] 309 10*3/uL Normal 140-450 [facility] Comment on above: Performed By: #### C DP, BMPX, TROPI #### [facility] [address] [place] [address] [employer] Operator: Gonzalez Jackson MD RBC (Bld) [#/Vol] 3.90 10*6/uL Low 4.0-5.2 [facility] Comment on above: Performed By: #### C DP, BMPX, TROPI #### [facility] [address] [place] [phone] [employer] Operator: Gonzalez Jackson MD WBC (Bld) [#/Vol] 10.1 10*3/uL Normal 3.5-11.0 [facility] Comment on above: Performed By: #### C DP, BMPX, TROPI #### [facility] [address] [place] [address] [employer] Operator: Gonzalez Jackson MD Abs.Imm.Granulocyte NOT REPORTED Normal 0.00-0.30 [facility] Comment on above: Performed By: #### C DP, BMPX, TROPI #### [facility] [address] [place] [phone] [employer] Operator: Gonzalez Jackson MD Immature granulocytes (Bld) [#/Vol] NOT REPORTED Normal 0 [facility] Comment on above: Performed By: #### C DP, BMPX, TROPI #### [facility] [address] [place] [address] [employer] Operator: Gonzalez Jackson MD NRBC Automated NOT REPORTED Normal [facility] Comment on above: Performed By: #### C DP, BMPX, TROPI #### [facility] [address] [place] [address] [employer] Operator: Gonzalez Jackson MD Platelet mean volume (Bld) [Entitic vol] NOT REPORTED Normal 6.0-12.0 [facility] Comment on above: Performed By: #### C DP, BMPX, TROPI #### [facility] [address] [place] [address] [employer] Operator: Gonzalez Jackson MD Platelets (Bld) [#/Vol] NOT REPORTED Normal [facility] Comment on above: Performed By: #### C DP, BMPX, TROPI #### [facility] [address] [place] [address] [employer] Operator: Gonzalez Jackson MD RBC morphology finding Nom (Bld) NOT REPORTED Normal [facility] Comment on above: Performed By: #### C DP, BMPX, TROPI #### [facility] [address] [place] [address] Offset Press Operator: Gonzalez Jackson MD WBC Morphology NOT REPORTED Normal [facility] Comment on above: Performed By: #### C DP, BMPX, TROPI #### [facility] [address] [place] [address] Offset Press Operator: Gonzalez Jackson MD CT HEAD WO CONTRASTon 2019 CT HEAD WO CONTRAST EXAMINATION: CT HEAD WITHOUT CONTRAST REASON FOR EXAMINATION: Dizziness and hypotension. No trauma. On Eliquis. Blurriness left eye with right eye resolved. COMPARISON: None. TECHNIQUE: CT examination of the head without IV contrast. Dose reduction techniques were achieved by using automated exposure control and/or adjustment of mA and/or kV according to patient size and/or use of iterative reconstruction technique. FINDINGS: No intracranial hemorrhage or abnormal extra-axial fluid collections are identified. A low density is seen in the anterior lentiform nucleus on the left extending to the caudate nucleus. This is most likely ischemic in origin and could be acute or chronic in nature. There are mild areas of deep white matter hypodensity seen presumably related to small vessel atherosclerotic disease. The sulcal pattern is symmetrical over the convexities. The fourth ventricle is in the midline. Midline symmetry is preserved. Arterial calcifications are noted at the skull base. IMPRESSION: There is an area of low density within the anterior basal ganglia on the left. This is most likely ischemic and is of indeterminate age. Intracranial hemorrhage or midline shift is not observed. A follow-up brain MRI is recommended. Interpreted by: Devante Weber DO Signed by: Devante Weber DO 08/15/19 Final result Normal [facility] CT Head WO Contraston 2019 Cholesterol in LDL [Mass/Vol] There is an area of low density within the anterior basal ganglia on the left. This is most likely ischemic and is of indeterminate age. Intracranial hemorrhage or midline shift is not observed. A follow-up brain MRI is recommended. [place], [place] EXAMINATION: CT HEAD WITHOUT CONTRAST REASON FOR EXAMINATION: Dizziness and hypotension. No trauma. On Eliquis. Blurriness left eye with right eye resolved. COMPARISON: None. TECHNIQUE: CT examination of the head without IV contrast. Dose reduction techniques were achieved by using automated exposure control and/or adjustment of mA and/or kV according to patient size and/or use of iterative reconstruction technique. FINDINGS: No intracranial hemorrhage or abnormal extra-axial fluid collections are identified. A low density is seen in the anterior lentiform nucleus on the left extending to the caudate nucleus. This is most likely ischemic in origin and could be acute or chronic in nature. There are mild areas of deep white matter hypodensity seen presumably related to small vessel atherosclerotic disease. The sulcal pattern is symmetrical over the convexities. The fourth ventricle is in the midline. Midline symmetry is preserved. Arterial calcifications are noted at the skull base. [place], [place] Mehrdad, Mhpn Incoming Radiant Results From [employer] - 08/15/2019 4:18 PM EST EXAMINATION: CT HEAD WITHOUT CONTRAST REASON FOR EXAMINATION: Dizziness and hypotension. No trauma. On Eliquis. Blurriness left eye with right eye resolved. COMPARISON: None. TECHNIQUE: CT examination of the head without IV contrast. Dose reduction techniques were achieved by using automated exposure control and/or adjustment of mA and/or kV according to patient size and/or use of iterative reconstruction technique. FINDINGS: No intracranial hemorrhage or abnormal extra-axial fluid collections are identified. A low density is seen in the anterior lentiform nucleus on the left extending to the caudate nucleus. This is most likely ischemic in origin and could be acute or chronic in nature. There are mild areas of deep white matter hypodensity seen presumably related to small vessel atherosclerotic disease. The sulcal pattern is symmetrical over the convexities. The fourth ventricle is in the midline. Midline symmetry is preserved. Arterial calcifications are noted at the skull base. IMPRESSION: There is an area of low density within the anterior basal ganglia on the left. This is most likely ischemic and is of indeterminate age. Intracranial hemorrhage or midline shift is not observed. A follow-up brain MRI is recommended. [place] Other 08-15-2019 Immature granulocytes (Bld) [#/Vol] NOT REPORTED [place] Troponinon 08-15-2019 Troponin I.cardiac [Mass/Vol] ng/mL Normal <0.03 [facility] Comment on above: Result Comment: Trop onin T results cannot be compared to Troponin-I results. Performed By: #### C DP, BMPX, TROPI #### [facility] [address] [place] [address] Offset Press Operator: Gonzalez Jackson MD Troponin I.cardiac [Mass/Vol] Normal [facility] Comment on above: Result Comment: Refe rence Range: <0.03 Within reference range. 0.03-0.09 Possible myocardial damage. Repeat at appropriate intervals to rule out chronic elevation. >= 0.10 Indicative of myocardial damage. Patients with high levels of Biotin oral intake (i.e >5mg/day) may have falsely decreased Troponin T levels. Samples collected within 8 hours of biotin intake may require additional information for diagnosis. Performed By: #### C DP, BMPX, TROPI #### [facility] [address] [place] [address] Offset Press Operator: Gonzalez Jackson MD Troponin I.cardiac [Mass/Vol] NOT REPORTED Normal 0-14 [facility] Comment on above: Performed By: #### C DP, BMPX, TROPI #### [facility] [address] [place] [address] Offset Press Operator: Gonzalez Jackson MD Troponin I.cardiac [Mass/Vol] [place] Comment on above: Reference Range: <0.03 Within reference range. 0.03-0.09 Possible myocardial damage. Repeat at appropriate intervals to rule out chronic elevation. >= 0.10 Indicative of myocardial damage. Patients with high levels of Biotin oral intake (i.e >5mg/day) may have falsely decreased Troponin T levels. Samples collected within 8 hours of biotin intake may require additional information for diagnosis. Troponin T.cardiac [Mass/Vol] ug/L <0.03 ng/mL [place] Comment on above: Troponin T results c annot be compared to Troponin-I results. Troponin, High Sensitivity NOT REPORTED 0 - 14 ng/L [place] XR ANKLE LEFT (MIN 3 VIEWS)o n 08-15-2019 XR ANKLE LEFT (MIN 3 VIEWS) EXAM: XR ANKLE LEFT (MIN 3 VIEWS) HISTORY: Reason for exam:->pain to lateral malleolus COMPARISON: None. FINDINGS: There is no acute fracture or dislocation of the left ankle. Ankle mortise appears normal. There is bimalleolar soft tissue thickening. Plantar calcaneal spur. IMPRESSION: No acute fracture or dislocation of the left ankle. Interpreted by: Devante Quiñonez MD Signed by: Devante Quiñonez MD 08/15/19 Final result Normal [facility] No acute fracture or dislocation of the left ankle. [place] Mehrdad, Mhpn Incoming Radiant Results From [employer] - 08/15/2019 3:22 PM EST EXAM: XR ANKLE LEFT (MIN 3 VIEWS) HISTORY: Reason for exam:->pain to lateral malleolus COMPARISON: None. FINDINGS: There is no acute fracture or dislocation of the left ankle. Ankle mortise appears normal. There is bimalleolar soft tissue thickening. Plantar calcaneal spur. IMPRESSION: No acute fracture or dislocation of the left ankle. [place] EXAM: XR ANKLE LEFT (MIN 3 VIEWS) HISTORY: Reason for exam:->pain to lateral malleolus COMPARISON: None. FINDINGS: There is no acute fracture or dislocation of the left ankle. Ankle mortise appears normal. There is bimalleolar soft tissue thickening. Plantar calcaneal spur. [place] XR CHEST PORTABLEon 08-15-19 20 XR CHEST PORTABLE EXAM: XR CHEST PORTABLE HISTORY: Reason for exam:->hypotension, dizziness COMPARISON: 06/23/2019 FINDINGS: Cardiomediastinal silhouette is unchanged in size and configuration. Bibasilar atelectasis. No focal consolidation, sizable effusions or pneumothorax. IMPRESSION: Cardiomegaly without acute cardiopulmonary process. Interpreted by: Devante Quiñonez MD Signed by: Devante Quiñonez MD 08/15/19 Final result Normal [facility] Cardiomegaly without acute cardiopulmonary process. [place] EXAM: XR CHEST PORTABLE HISTORY: Reason for exam:->hypotension, dizziness COMPARISON: 06/23/2019 FINDINGS: Cardiomediastinal silhouette is unchanged in size and configuration. Bibasilar atelectasis. No focal consolidation, sizable effusions or pneumothorax. [place] Mehrdad, Mhpn Incoming Radiant Results From [employer] - 08/15/2019 6:48 PM EST EXAM: XR CHEST PORTABLE HISTORY: Reason for exam:->hypotension, dizziness COMPARISON: 06/23/2019 FINDINGS: Cardiomediastinal silhouette is unchanged in size and configuration. Bibasilar atelectasis. No focal consolidation, sizable effusions or pneumothorax. IMPRESSION: Cardiomegaly without acute cardiopulmonary process. [place] Vital Signs Date Time Vital Sign Value Performing Clinician Clem desir 05-30-2024 14:29-0500 Body height 167.6 cm Kole Ellison DPM Work Phone: [facility] 05-30-2024 14:29-0500 Body mass index (BMI) [Ratio] 46.65 kg/m2 Kole Ellison DPM Work Phone: [facility] 05-30-2024 14:29-0500 Body weight 131.09 kg Kole MANZANARESM Work Phone: [facility] 05-30-2024 14:29-0500 Respiratory rate 16 /min Kole Ellison DPM Work Phone: [facility] 02-22-2024 12:06-0400 Body height 167.6 cm Kole Ellison DPM Work Phone: [facility] 02-22-2024 12:06-0400 Body mass index (BMI) [Ratio] 46.65 kg/m2 Kole Ellison DPM Work Phone: [facility] 02-22-2024 12:06-0400 Body weight 131.09 kg Kole Ellison DPM Work Phone: [facility] 02-22-2024 12:06-0400 Diastolic blood pressure 81 mm[Hg] Kole Ellison DPM Work Phone: [facility] 02-22-2024 12:06-0400 Heart rate 74 /min Kole Ellison DPM Work Phone: [facility] 02-22-2024 12:06-0400 Respiratory rate 18 /min Kole Ellison DPM Work Phone: [facility] 02-22-2024 12:06-0400 Systolic blood pressure 130 mm[Hg] Kole Ellison DPM Work Phone: [facility] 11-04-2021 12:30-0400 Body height 167.64 cm Arnol Demarco Other [employer] Other 11-04-2021 12:30-0400 Body mass index (BMI) [Ratio] 54.87 kg/m2 Arnol Demarco Other [employer] Other 11-04-2021 12:30-0400 Body temperature 98.8 [degF] Arnol Demarco Other [employer] Other 11-04-2021 12:30-0400 Body weight 154.22 kg Arnol Demarco Other [employer] Other 11-04-2021 12:30-0400 Diastolic blood pressure 74 mm[Hg] Arnol Demarco Other [employer] Other 11-04-2021 12:30-0400 Respiratory rate 20 /min Arnol Demarco Other [employer] Other 11-04-2021 12:30-0400 SaO2% (BldA) [Mass fraction] 94 % Arnol Demarco Other [employer] Other 11-04-2021 12:30-0400 Systolic blood pressure 128 mm[Hg] Arnol Demarco Other [employer] Other 08-15-2019 18:35-0500 BP Diastolic 72 mm[Hg] [facility] 08-15-2019 18:35-0500 BP Systolic 99 mm[Hg] [facility] 08-15-2019 18:35-0500 Pulse (Heart Rate) 94 /min [facility] 08-15-2019 18:35-0500 Pulse Oximetry 97 % [facility] 08-15-2019 18:35-0500 Respiratory Rate 16 /min [facility] 08-15-2019 14:49-0500 BMI (Body Mass Index) 50.36 kg/m2 [facility] 08-15-2019 14:49-0500 Body weight 141.52 kg [facility] 08-15-2019 14:49-0500 Height 167.6 cm [facility] 08-15-2019 14:41-0500 Body Temperature 98.2 [degF] [facility] [place], [place] Encounters Encounter Date Encounter Type Care Provider Facility Start: 05-30-2024 End: 05-30-2024 ambulatory KOLE ELLISON Not Available Start: 05-30-2024 End: 05-30-2024 Patient encounter procedure Kole Ellison DPM Work Phone: [facility] Comment on above: Type 2 diabetes sharita itus without complication, with long-term current use of insulin (CMS/[facility]) (Primary Dx); Onychomycosis; Toe pain, left; Toe pain, right; Xerosis cutis Start: 05-30-2024 End: 05-30-2024 Bamboo flowsheet Kole Ellison DPM Work Phone: [facility] Start: 05-30-2024 End: 05-30-2024 Bamboo flowsheet Kole Ellison DPM Work Phone: [facility] Start: 02-22-2024 End: 02-22-2024 Bamboo flowsheet Kole Ellison DPM Work Phone: [facility] Start: 02-22-2024 End: 02-22-2024 Bamboo flowsheet Kole Ellison DPM Work Phone: [facility] Start: 02-22-2024 End: 02-22-2024 ambulatory KOLE ELLISON Not Available Start: 02-22-2024 End: 02-22-2024 Patient encounter procedure Kole Ellison DPM Work Phone: [facility] Comment on above: Type 2 diabetes sharita itus without complication, with long-term current use of insulin (CMS/[facility]) (Primary Dx); Onychomycosis; Toe pain, bilateral; Xerosis cutis Start: 12-07-2023 End: 12-07-2023 ambulatory KOLE ELLISON Not Available Start: 09-21-2023 End: 09-21-2023 ambulatory KOLE ELLISON Not Available Start: 07-13-2023 End: 07-13-2023 ambulatory KOLE Diallo DARNELL Not Available Start: 02-03-2022 End: 02-03-[address] ELLEN MARRERO Facility:[facility] Start: 12-14-[address] ELLEN MARRERO Facility :[facility] Start: 11-04-2021 End: 11-04-2021 ambulatory Arnol Demarco Other [employer] Other Start: 11-04-2021 Follow-up encounter Arnol Romero rg [facility] Start: 07-13-2021 End: 07-14-[address] ELLEN MARRERO Facility:[facility] Start: 06-07-2021 End: 06-08-2021 ambulatory ASHLEYMANNY MURPHY Facility:[facility] Start: 08-15-2019 End: 08-15-2019 Emergency department patient visit [facility] Start: 08-15-2019 End: 08-15-2019 Emergency department patient visit Kwesi Watts Work Phone: [facility] ED Procedures Date Procedure Procedure Detail Performing Clinician Start: 08-15-2019 Ct head/brain w/o co ntrast material ELLEN HOCaleb Start: 08-15-2019 Radiologic exam ches t single view ELLEN HOY Start: 08-15-2019 Radex ankle complete minimum 3 views ELLEN HOY Start: 08-15-2019 Assay of troponin quantitative ELLEN Y Start: 08-15-2019 Blood count complete auto&auto difrntl wbc ELLEN HOY Start: 08-15-2019 Comprehensive metabo lic panel ELLEN HOCaleb Start: 08-15-2019 ORTHOSTATIC BLOOD [place] ESSURE AND PULSE ELLEN HOY Start: 08-15-2019 TELEMETRY MONITORING DO UGLAS HOY Start: 08-15-2019 Urnls dip stick/tabl et rgnt auto w/o microscopy ELLEN HOCaleb Start: 08-15-2019 Ecg routine ecg w/le ast 12 lds w/i&r ELLEN HOY Start: 08-15-2019 Ct head/brain w/o co ntrast material Kwesi Watts Work Phone: Start: 08-15-2019 Radiologic exam ches t single view Kwesi Watts Work Phone: Start: 08-15-2019 Radex ankle complete minimum 3 views Kwesi Mercedes Mac Work Phone: Start: 08-15-2019 Assay of troponin quantitative Kwesi Mercedes Mac Work Phone: Start: 08-15-2019 BASIC METABOLIC PANE L W/ REFLEX TO MG FOR LOW K Kwesi Mercedes Mac Work Phone: Start: 08-15-2019 Blood count complete auto&auto difrntl wbc Kwesi Mercedes Mac Work Phone: Plan of Treatment Date Care Activity Detail Author Start: 08-15-2024 End: 08-15-2024 Patient encounter procedure 08/15/2024 2:10 PM EST Procedure Visit [facility] [address] [facility] [address] [place] [id number] Kole Ellison, DPM [address] [address] [facility] Start: 05-02-2024 End: 05-02-2024 Patient encounter procedure 05/02/2024 11:50 AM EST Procedure Visit [facility] [address] [place] [address] [place] [id number] Kole Ellison, DPM [address] [address] [facility] Start: 02-18-2024 Influenza vaccination Influenza Vacc ine (#1) [facility] Start: 05-22-2021 Pneumococcal Vaccine : 65+ Years (2 of 2 - PCV) Pneumococcal Vaccine: 65+ Years (2 of 2 - PCV) [facility] Start: 08-15-2019 Annual Wellness Visi t (AWV) Annual Wellness Visit (AWV) [place] Start: 02-17-2019 Influenza vaccination Flu vaccine (# 1) [place] Start: 2018 DEXA (modify frequen cy per FRAX score) DEXA (modify frequency per FRAX score) [place] Start: 2018 Pneumococcal 65+ yea rs Vaccine (1 of 1 - PPSV23) Pneumococcal 65+ years Vaccine (1 of 1 - PPSV23) [place] Start: 2003 Breast cancer screen Breast cancer s creen [place] Start: 2003 Colon cancer screen colonoscopy Colon cancer screen colonoscopy [place] Start: 2003 Shingles Vaccine (1 of 2) Shingles Vaccine (1 of 2) [place] Start: 1993 Diabetes screen Diabetes screen [place], [place] Start: 1993 Lipid screen Lipid screen [place], [place] Start: 1993 Screening for malign ant neoplasm of breast Mammogram [facility] Start: 1964 DTaP/Tdap/Td vaccine (1 - Tdap) DTaP/Tdap/Td vaccine (1 - Tdap) [place], [place] Start: 1953 Creatinine monitoring Creatinine mon itoring [place], [place] Start: 1953 Hepatitis C screen Hepatitis C scree n [place], [place] Start: 1953 Potassium monitoring Potassium monit oring [place], [place] Start: 1955 Screening for malign ant neoplasm of colon [facility] EKG 12 Lead EKG 12 Lead ECG STAT 08/15/2019 2:41 PM EST [place] End: 08-15-2019 Urinalysis, reflex to microscopic Urinalysis, reflex to microscopic Lab STAT One Time for 1 Occurrences starting 08/15/2019 until 08/15/2019 [place] Comment on above: One Time for 1 Occur rences starting 08/15/2019 until 08/15/2019 Immunizations Immunization Date Immunization Notes Care Provider Evy whipple 03-10-2021 influenza virus vacc ine, unspecified formulation Kole Ellison DPM Work Phone: [facility] Payers Date Payer Category Payer Medicare AN[employer]M MEDICARE ADVANTAGE ANTH MEDICARE ADVANTAGE [id number] 2021-Present [address] [place] [address] [id number] 2021 Medicare (Managed Care) RAJAT SHANNON ADVANTAGE [id number] 2018 Medicare MEDICARE MEDICAR E PART A AND B xxxxxxxxxxx 2018-Present [phone] [address] [address] [place] [address] xxxxxxxxxxx [id number] 2018 Medicare [id number] 2018 Private Health Insurance [employer] xxxxxxxx 2018-Present [phone] [place] [address] xxxxxxxx [id number] 2018 Private Health Insurance [id number] 1959 Medicare [id number] 1959 Self-pay 1955 Unknown [id number] 1953 Unknown [id number] 1953 Unknown [id number] 1953 Unknown [id number] 1953 Unknown [id number] 1953 Unknown [id number] 1953 Unknown [id number] 1953 Unknown [id number] 1953 Unknown [id number] 1955 Unknown [id number] Social History Date Type Detail Facility Start: 08-15-2019 Tobacco smoking stat [facility] Former smoker [place], [place] Start: 1955 Sex Assigned At Not on file [place] Start: 12-07-2023 End: 02-22-2024 Sex Assigned At [facility] [employer] Other Start: 06-19-2007 Tobacco smoking stat [facility] Smokes tobacco daily [facility] Start: 06-19-2007 History of tobacco use Cigarette Smo ker [facility] Start: 12-07-2023 End: 02-22-2024 Cigarettes smoked current (pack per day) - Reported 1 [facility] History of tobacco use Passive smoker [facility] Start: 12-07-2023 Tobacco use and exposure Smokeless tobacco non-user [facility] Start: 12-07-2023 End: 02-22-2024 Alcoholic beverage intake Ex-drinker (finding) [facility] Start: 02-02-2023 Tobacco Comment Smokes 11-20 c igs per day [facility] History of Present illness Narrative 05-30-2024 Kole Ellison, BLAISE - 05/30/2024 2:20 PM EST Note Date & Type Note Facility 05-30-2024 History of Presen t illness Narrative Patient: Goergiana Conn : 1955 PCP: Ellen Marrero MD SUBJECTIVE This is a 68 y.o. female that presents today with a CC of elongated, thick nails. Pt states nails have been elongated and thick for many years and cause pain with ambulation in shoegear. Pt has tried previous treatment with minimal relief. Pt presents today for nail care and treatment. Patient is DM2 Patient has long standing hx of xerosis to feet. Allergies: Allergies Allergen Reactions Quinolones Shortness of breath Cephalexin Past Medical History: Past Medical History: Diagnosis Date Chronic venous insufficiency Current every day smoker Diabetes mellitus, type 2 (CMS/HCC) Difficulty walking Essential hypertension (CMS/HCC) Morbid obesity with BMI of 45.0-49.9, adult (CMS/HCC) Neuropathy in diabetes (CMS/HCC) OC (onychocryptosis) OM (onychomycosis) Other specified disorders of synovium, left ankle and foot Risk for falls Tinea pedis Medications: Current Outpatient Medications: dilTIAZem XR (Dilacor XR) 240 MG 24 hr capsule, Take 240 mg by mouth 1 (one) time each day at the same time., Disp: , Rfl: FLUoxetine (PROzac) 20 MG capsule, Take 20 mg by mouth in the morning., Disp: , Rfl: hydrALAZINE (Apresoline) 50 MG tablet, Take 50 mg by mouth every 8 (eight) hours., Disp: , Rfl: hydroCHLOROthiazide (HYDRODiuril) 25 MG tablet, Take 25 mg by mouth in the morning., Disp: , Rfl: insulin glargine (Lantus) 100 UNIT/ML pen, Inject 100 Units under the skin in the morning., Disp: , Rfl: lisinopril 40 MG tablet, Take 40 mg by mouth in the morning., Disp: , Rfl: Trelegy Ellipta 100-62.5-25 MCG/ACT aerosol powder , Inhale 100 Inhalation in the morning., Disp: , Rfl: Social History: Social History Socioeconomic History Marital status: Unmarried Spouse name: Not on file Number of children: Not on file Years of education: Not on file Highest education level: Not on file Occupational History Not on file Tobacco Use Smoking status: Every Day Current packs/day: 1.00 Average packs/day: 1 pack/day for 16.9 years (16.9 ttl pk-yrs) Types: Cigarettes Start date: 2007 Passive exposure: Current Smokeless tobacco: Never Tobacco comments: Smokes 11-20 cigs per day Vaping Use Vaping status: Unknown Substance and Sexual Activity Alcohol use: Not Currently Drug use: Never Sexual activity: Defer Partners: Decline to Answer Other Topics Concern Not on file Social History Narrative Not on file Social Drivers of Health Financial Resource Strain: Not on file Food Insecurity: Not on file Transportation Needs: Not on file Physical Activity: Not on file Stress: Not on file Social Connections: Not on file Intimate Partner Violence: Not on file Housing Stability: Not on file ROS: General: denies fever, chills, fatigue, malaise OBJECTIVE LE EXAM: DERM: Elongated thick yellow crumbly nails digits 1 through 10. Negative hair growth with thin shiny atrophic skin bilaterally. Diminished Dry and scaly skin to bilateral feet with +1 pitting edema VASC: Negative DP and negative PT pedal pulses NEURO: 5.07 [place] Jaime monofilament test diminished to digits and forefoot bilaterally 125Hz tuning fork diminished to 1st MPJ bilaterally ORTHO: Positive pain on palpation to nails 1 through 10 ASSESSMENT 1. Type 2 diabetes mellitus without complication, with long-term current use of insulin ([facility]) 2. Onychomycosis 3. Toe pain, left 4. Toe pain, right 5. Xerosis cutis PLAN Discussed proper foot care with patient today. Debride nails in length and thickness digits 1 through 10 Patient educated today on proper diabetic foot care including monitoring feet daily for any signs of infection openings in the skin or irregularities to both feet. Patient had a diabetic neurological exam today to both their feet and discussed proper shoe gear. Patient advised to continue creams to feet p.r.n. and to use [id number] creams at this time if possible Kole Ellison DPM documented in this encounter [facility] History of Present illness Narrative 02-22-2024 Kole Ellison DPM - 02/22/2024 11:50 AM EDT Note Date & Type Note Facility 02-22-2024 History of Presen t illness Narrative Patient: Georgiana Conn : 1955 PCP: Ellen Marrero MD SUBJECTIVE This is a 68 y.o. female that presents today with a CC of elongated, thick nails. Pt states nails have been elongated and thick for many years and cause pain with ambulation in shoegear. Pt has tried previous treatment with minimal relief. Pt presents today for nail care and treatment. Patient is DM2 Patient has long standing hx of xerosis to feet. Allergies: Allergies Allergen Reactions Quinolones Shortness of breath Cephalexin Past Medical History: Past Medical History: Diagnosis Date Chronic venous insufficiency Current every day smoker Diabetes mellitus, type 2 (CMS/HCC) Difficulty walking Essential hypertension (CMS/HCC) Morbid obesity with BMI of 45.0-49.9, adult (CMS/[facility]) Neuropathy in diabetes (CMS/HCC) OC (onychocryptosis) OM (onychomycosis) Other specified disorders of synovium, left ankle and foot Risk for falls Tinea pedis Medications: Current Outpatient Medications: dilTIAZem XR (Dilacor XR) 240 MG 24 hr capsule, Take 240 mg by mouth 1 (one) time each day at the same time., Disp: , Rfl: FLUoxetine (PROzac) 20 MG capsule, Take 20 mg by mouth in the morning., Disp: , Rfl: hydrALAZINE (Apresoline) 50 MG tablet, Take 50 mg by mouth every 8 (eight) hours., Disp: , Rfl: hydroCHLOROthiazide (HYDRODiuril) 25 MG tablet, Take 25 mg by mouth in the morning., Disp: , Rfl: insulin glargine (Lantus) 100 UNIT/ML pen, Inject 100 Units under the skin in the morning., Disp: , Rfl: lisinopril 40 MG tablet, Take 40 mg by mouth in the morning., Disp: , Rfl: Trelegy Ellipta 100-62.5-25 MCG/ACT aerosol powder , Inhale 100 Inhalation in the morning., Disp: , Rfl: Social History: Social History Socioeconomic History Marital status: Unmarried Spouse name: Not on file Number of children: Not on file Years of education: Not on file Highest education level: Not on file Occupational History Not on file Tobacco Use Smoking status: Every Day Current packs/day: 1.00 Average packs/day: 1 pack/day for 16.7 years (16.7 ttl pk-yrs) Types: Cigarettes Start date: 2007 Passive exposure: Current Smokeless tobacco: Never Tobacco comments: Smokes 11-20 cigs per day Vaping Use Vaping status: Unknown Substance and Sexual Activity Alcohol use: Not Currently Drug use: Never Sexual activity: Defer Partners: Decline to Answer Other Topics Concern Not on file Social History Narrative Not on file Social Determinants of Health Financial Resource Strain: Not on file Food Insecurity: Not on file Transportation Needs: Not on file Physical Activity: Not on file Stress: Not on file Social Connections: Not on file Intimate Partner Violence: Not on file Housing Stability: Not on file ROS: General: denies fever, chills, fatigue, malaise OBJECTIVE LE EXAM: DERM: Elongated thick yellow crumbly nails digits 1 through 10. Negative hair growth with thin shiny atrophic skin bilaterally. Diminished Dry and scaly skin to bilateral feet with +1 pitting edema VASC: Negative DP and negative PT pedal pulses NEURO: 5.07 [place] Jaime monofilament test diminished to digits and forefoot bilaterally 125Hz tuning fork diminished to 1st MPJ bilaterally ORTHO: Positive pain on palpation to nails 1 through 10 ASSESSMENT 1. Type 2 diabetes mellitus without complication, with long-term current use of insulin ([facility]) 2. Onychomycosis 3. Toe pain, bilateral 4. Xerosis cutis PLAN Discussed proper foot care with patient today. Debride nails in length and thickness digits 1 through 10 Patient educated today on proper diabetic foot care including monitoring feet daily for any signs of infection openings in the skin or irregularities to both feet. Patient had a diabetic neurological exam today to both their feet and discussed proper shoe gear. Patient advised to continue creams to feet p.r.n. and to use [id number] creams at this time if possible Kole Ellison DPM documented in this encounter [facility] Evaluation note 11-04-2021 Note Date & Type Note Facility 11-04-2021 Evaluation note Encounter Date Diagnosis Assessment Notes October, Carotid stenosis, bilateral (ICD-10 - I65.23) We reviewed today's duplex studies which remained stable. She remains asymptomatic of her carotid occlusive disease and on good medical therapy with use of aspirin and statin medications daily. We will continue to follow her on a routine basis and see her back next year with repeat surveillance duplex studies. She knows to call us in the meantime if any issues present. She verbalizes understanding, agrees with this plan, denies any questions. [employer] Other History general Narrative - Reported 08-19-2019 Note Date & Type Note Facility 08-19-2019 History general N arrative - Reported Type Medical History diabetes mallitus Medical History hypertension Medical History Atrial fibrillation Surgical History Left carotid endarterectomy 08-18 Surgical History cartaract surgery, bilateral Hospitalization History breathing, copd, bronchitis, pnuemonia [employer] Other Evaluation note Note Date & Type Note Facility Evaluation note Diagnosis Type 2 diabetes mellitus without complication, with long-term current use of insulin ([facility])- Primary Onychomycosis Dermatophytosis of nail Toe pain, left Pain in soft tissues of limb Toe pain, right Pain in soft tissues of limb Xerosis cutis Other specified disease of sebaceous glands documented in this encounter [facility] Evaluation note Note Date & Type Note Facility Evaluation note Diagnosis Type 2 diabetes mellitus without complication, with long-term current use of insulin ([facility])- Primary Onychomycosis Dermatophytosis of nail Toe pain, bilateral Xerosis cutis Other specified disease of sebaceous glands documented in this encounter [facility] Advance Directives Documents on File Type Date Recorded Patient Etl Analyst Expl anation Advance Directives and Living Will Power of Collections Manager Summary Purpose Family History No Family History Records FoundNo Family History Records FoundNo Family History Records FoundNo Family History Records Found Additional Source Comments Reason for Visit (unrecogniz ed section and content) Reason Comments Dizziness Pt went to walkin fo r ankle pain. While there pt got very dizzy, blurred vision, low blood pressure. 30pt drop per EMS from laying to sitting. Hypotension Reason Comments Toenail Care Non dm nail care INFORMATION SOURCE (unrecogn ized section and content) DATE CREATED AUTHOR 08/16/2019 Kimberly desouza DATE CREATED AUTHOR AUTHOR'S ORGANIZ ATION 11/23/2021 [facility] DATE CREATED AUTHOR AUTHOR'S ORGANIZ ATION 02/10/2022 [facility] DATE CREATED AUTHOR AUTHOR'S ORGANIZ ATION 06/02/2024 [facility] Specialists [facility] Care Teams (unrecognized sec tion and content) Skidder Runner Relationship Specialty Start Date End Date Ellen Marrero MD [address] [place] [address] PCP - General Family Medicine 11/17/22 [employer]ner Relationship Specialty Start Date End Date Ellen Marrero MD [address] [place] [id number] [phone] PCP - General Family Medicine 11/17/22 Skidder Runner Relationship Specialty Start Date End Date Ellen Marrero MD [address] [place] [address] PCP - General Family Medicine 11/17/22 FOR RECORDS PERTAINING TO PATIENTS WHO ARE OR HAVE BEEN ENROLLED IN A CHEMICAL DEPENDENCY/SUBSTANCEABUSE PROGRAM, SOME INFORMATION MAY BE OMITTED. This clinical summary was aggregated from multiple sources. Caution should be exercised in using it in the provision of clinical care. This summary normalizes information from multiple sources, and as a consequence, information in this document may materially change the coding, format and clinical context of patient data. In addition, data may be omitted in some cases. CLINICAL DECISIONS SHOULD BE BASED ON THE PRIMARY CLINICAL RECORDS. [employer] provides no warranty or guarantee of the accuracy or completeness of information in this document.
[2024-08-03 17:43] LABS: Basophils Percent Auto 0.1 % (0.2-2.0); Hematocrit 43.2 % (36.0-48.0); Hemoglobin 14.5 g/dL (12.0-16.0); Immature Granulocytes Abs Auto 0.08 10^3/uL (0.00-0.03); Immature Granulocytes Pct Auto 0.8 % (0.0-0.5); Lymphocytes Absolute Auto 0.6 10^3/uL (1.2-3.8); Lymphocytes Percent Auto 5.9 % (20.5-60.0); Mean Corpuscular HGB Conc 33.6 g/dL (29.9-35.2); Mean Corpuscular Volume 95.4 fL (81.0-99.0); Mean Platelet Volume 9.2 fL (9.5-13.5); Monocytes Absolute Auto 0.2 10^3/uL (0.3-0.8); Monocytes Percent Auto 2.3 % (1.7-12.0); Neutrophils Absolute Auto 8.8 10^3/uL (1.4-6.5); Neutrophils Percent Auto 90.9 % (43.0-75.0); Platelet Count 218 10^3/uL (150-450); Red Blood Count 4.53 10^6/uL (4.20-5.40); Red Cell Distribution Width 12.8 % (11.0-15.0); White Blood Count 9.6 10^3/uL (4.0-11.0)
[2024-08-03 17:54] LABS: Influenza Virus A Antigen Negative; Influenza Virus B Antigen Negative; Internal Control Within Normal Limits; SARS-CoV-2 Ag NEGATIVE (NEGATIVE)
[2024-08-03] MEDS: METHYLPREDNISOLONE SOD SUCC PF 125 MG/2 ML VIAL IVP (17:57)
[2024-08-03 18:02] LABS: Anion Gap 10.8; BUN Creatinine Ratio 18.9; Calcium 9.1 mg/dL (8.5-10.1); Carbon Dioxide 34.8 mmol/L (21.0-32.0); Chloride 100 mmol/L (98-107); Estimated GFR (African America >60 (>=60 mL/min/1.73m^2); Estimated GFR (Non-African Ame 51 (>=60 mL/min/1.73m^2); Glucose 196 mg/dL (74-106); Potassium 3.6 mmol/L (3.5-5.1); Sodium 142 mmol/L (136-145); Troponin I High Sensitivity 12.1 pg/mL (4.0-51.3)
[2024-08-03] MEDS: ALBUTEROL SULFATE 2.5 MG/3 ML VIAL NEB IH ×2 (18:07→22:52)
[2024-08-03] MEDS: FUROSEMIDE 40 MG/4 ML VIAL IVP (18:59)
--- OUTSIDE RECORDS SUMMARY | 2024-08-03 21:00 | XMS_ITS | CCD ---
Author Organization [facility] Care Team Providers Care Soda Drier Feeder Name Role Phone Ellen Marrero Primary Care Provider [phone] ELLEN MARRERO Primary Care Unavailable KWESI WATTS [...] (5 sources) Cephalexin Drug Allergy 06-16-20 19 [place] (3 sources) Ciprofloxacin Drug Allergy 08-15-19 20 Shortness Of Breath [place] (1 source) Quinolones (Antibiotic) Propensity to adverse reactions to drug 08-15-19 20 [place] (4 sources) Cephalexin; Translations: [Keflex] Drug Allergy 06-16-20 19 shortness of breath [facility] (2 sources) Quinolones (Antibiotic) Propensity to adverse reactions shortness of breath [employer] Other (2 sources) Ciprofloxacin Drug Allergy 06-16-20 19 [facility] (4 sources) Quinolones (Antibiotic) Drug Intolerance [...] same time. Active take 1 capsule by [facility] every twenty-four hours Cartia XT 180 MG [...] Active Promethazine (2 sources) Phenothiazine RA [place] (2 sources) RA [place] A ctive Spironolactone (3 sources) Aldosterone Antagonist [...] Value Interpretation Reference Range Facility [facility]17 SARS-CoV-2 (COVID-19) RNA NAHOMY+probe Ql (Unsp spec) Detected Critically abnormal NOT DETECTED [facility] Comment on above: Result Comment: This test is not yet approved or cleared by the [place] FDA. When there are no FDA-approved or cleared tests available, and other criteria are met, FDA can make tests available under an emergency access mechanism called an Emergency Use Authorization (EUA). The EUA for this test is supported by the Manager Radiation of Health and Human Service's (HHS's) declaration [...] longer be used). Performed By: #### C [facility] #### [facility] [address] [place] [address] Dr. [place] US carotid doppler BIon 10-17 US carotid doppler BI [facility] [place] [address] Ultrasound Report Signed Patient: Georgiana Conn MR#: [id number] : 1955 Acct:[id number] Age/Sex: 66 / F ADM Date: 11/04/21 [facility] Room: Type: [facility] Attending Dr: Arnol Demarco MD Ordering Provider: [...] Arnol Demarco MD11/04/2021 3:57 PM Dictation Location: [place] [address] Tech: Mary Bryant Transcribed By: KINJAL 11/04/21 [id number] Dictated By: Arnol Demarco MD 11/04/21 0146 Signed By: 11/04/21 1551 [facility] Basic Metab w/rfx MGon 08-15 (cont.) Normal [facility] Comment on above: Result Comment: Aver age GFR for 60-69 years old: 85 mL/min/1.73sq m Chronic Kidney Disease: <60 mL/min/1.73sq m Kidney failure: <15 mL/min/1.73sq m eGFR calculated using average adult body mass. Additional eGFR calculator available at: http://www.[employer]/multiple_crcl_2012.htm Performed By: #### C DP, BMPX, TROPI #### [facility] [address] [place], [place] [id number] Tube Making Machine Operator: Gonzalez Jackson MD Anion gap [Moles/Vol] 21 mmol/L High 9-17 [facility] Comment on above: Performed By: #### C DP, BMPX, TROPI #### [facility] [address] [place], [place] [id number] Tube Making Machine Operator: Gonzalez Jackson MD BUN/CRE Ratio 32 [facility] 9-20 [facility] Comment on above: Performed By: #### C DP, BMPX, TROPI #### [facility] [address] [place], [place] [id number] T[employer] Making Machine Operator: Gonzalez Jackson MD Calcium [Mass/Vol] 10.3 mg/dL Normal 8.6-10.4 [facility] Comment on above: Performed By: #### C DP, BMPX, TROPI #### [facility] [address] [place], [place] [phone] T[employer] Making Machine Operator: Gonzalez Jackson MD Chloride [Moles/Vol] 100 mmol/L Normal 98-107 [facility] Comment on above: Performed By: #### C DP, BMPX, TROPI #### [facility] [address] [place], [place] [id number] T[employer] Making Machine Operator: Gonzalez Jackson MD CO2 [Moles/Vol] 22 mmol/L Normal 20-31 [facility] Comment on above: Performed By: #### C DP, BMPX, TROPI #### [facility] [address] [place] [address] Tube Making Machine Operator: Gonzalez Jackson MD Creatinine [Mass/Vol] 1.48 mg/dL High 0.50-0.90 [facility] Comment on above: Performed By: #### C DP, BMPX, TROPI #### [facility] [address] [place] [address] Tube Making Machine Operator: Gonzalez Jackson MD GFR, Amer 43 mL/min Low >60 [facility] Comment on above: Performed By: #### C DP, BMPX, TROPI #### [facility] [address] [place] [address] Tube Making Machine Operator: Gonzalez Jackson MD GFR,non Amer 35 mL/min Low >60 [facility] Comment on above: Performed By: #### C DP, BMPX, TROPI #### [facility] [address] [place] [address] Tube Making Machine Operator: Gonzalez Jackson MD Glucose [Mass/Vol] 140 mg/dL High 70-99 [facility] Comment on above: Performed By: #### C DP, BMPX, TROPI #### [facility] [address] [place] [address] Tube Making Machine Operator: Gonzalez Jackson MD Potassium [Moles/Vol] 5.0 mmol/L Normal 3.7-5.3 [facility] Comment on above: Performed By: #### C DP, BMPX, TROPI #### [facility] [address] [place] [address] Tube Making Machine Operator: Gonzalez Jackson MD Sodium [Moles/Vol] 143 mmol/L Normal 135-144 [facility] Comment on above: Performed By: #### C DP, BMPX, TROPI #### [facility] [address] [place], [place] [phone] [employer] Making Machine Operator: Gonzalez Jackson MD Urea nitrogen [Mass/Vol] 48 mg/dL High 8-23 [facility] Comment on above: Performed By: #### C DP, BMPX, TROPI #### [facility] [address] [place], [place] [id number] [employer] Making Machine Operator: Gonzalez Jackson MD Staging: NOT REPORTED Normal [facility] Comment on above: Performed By: #### C DP, BMPX, TROPI #### [facility] [address] [place] [address] Tube Making Machine Operator: Gonzalez Jackson MD Basic Metabolic Panel w/ Ref odilia to MGon 08-15-2019 Anion gap [Moles/Vol] 21 mmol/L High 9 - 17 mmol/L [place] Bun/Cre Ratio 32 High [place] [employer] Calcium [Mass/Vol] 10.3 mg/dL 8.6 - 10. 4 mg/dL [place] Chloride [Moles/Vol] 100 mmol/L 98 - 107 mmol/L [place] CO2 [Moles/Vol] 22 mmol/L 20 - 31 mmol/L [place] Creatinine [Mass/Vol] 1.48 mg/dL High 0.5 - 0.9 mg/dL [place] GFR 43 mL/min Low >60 [place] GFR Non- 35 mL/min Low >60 [place] GFR/1.73 sq M predicted among non-blacks MDRD (S/P/Bld) [Vol rate/Area] [place] Comment on above: Average GFR for 60-6 9 years old: 85 mL/min/1.73sq m Chronic Kidney Disease: <60 mL/min/1.73sq m Kidney failure: <15 mL/min/1.73sq m eGFR calculated using average adult body mass. Additional eGFR calculator available at: http://www.[employer]/multiple_crcl_2012.htm GFR/1.73 sq M predicted among non-blacks MDRD (S/P/Bld) [Vol rate/Area] NOT REPORTED [place] Glucose [Mass/Vol] 140 mg/dL High 70 - 99 mg/dL [place] Interpretation and review of laboratory results Abnormal [place] Potassium [Moles/Vol] 5.0 mmol/L 3.7 - 5.3 mmol/L [place] Sodium [Moles/Vol] 143 mmol/L 135 - 144 mmol/L [place] Urea nitrogen [Mass/Vol] 48 mg/dL High 8 - 23 mg/dL [place] CBC Auto Differentialon 07-21 Basophils (Bld) [#/Vol] 0.10 10*3/uL [place] Basophils/100 WBC (Bld) 1 % 0 - 2 % [place] Differential Type YES [place] Eosinophils (Bld) [#/Vol] 0.00 10*3/uL [place] Eosinophils/100 WBC (Bld) 1 % 0 - 5 % [place] Erythrocyte distribution width (RBC) [Ratio] 18.3 % High 12.1 - 15.2 % [place] Hematocrit (Bld) [Volume fraction] 36.9 % 36 - 46 % [place] Hemoglobin (Bld) [Mass/Vol] 12.1 g/dL 12 - 16 g/dL [place] Interpretation and review of laboratory results Abnormal [place] Lymphocytes (Bld) [#/Vol] 3.50 10*3/uL [place] Lymphocytes/100 WBC (Bld) 35 % 15 - 40 % [place] MCH (RBC) [Entitic mass] 31.1 pg 26 - 34 pg [place] MCHC (RBC) [Mass/Vol] 32.9 g/dL 31 - 37 g/dL [place] MCV (RBC) [Entitic vol] 94.6 fL 80 - 100 fL [place] Monocytes (Bld) [#/Vol] 0.70 10*3/uL [place] Monocytes/100 WBC (Bld) 7 % 4 - 8 % [place] Platelet mean volume (Bld) [Entitic vol] NOT REPORTED 6 - 12 fL [place] Platelets (Bld) [#/Vol] 309 10*3/uL [place] Platelets (Bld) [#/Vol] NOT REPORTED [place] RBC (Bld) [#/Vol] 3.90 10*6/uL Low 4 - 5.2 m/uL [place] RBC morphology finding Nom (Bld) NOT REPORTED [place] Segmented neutrophils/100 WBC (Bld) 56 % 47 - 75 % [place] Segs Absolute 5.80 [place] [employer] WBC (Bld) [#/Vol] NOT REPORTED per 100 WBC [place] WBC (Bld) [#/Vol] 10.1 10*3/uL [place] WBC Morphology NOT REPORTED [place] CBC with Diffon 08-15-2019 Abs. Basophil 0.10 k/uL Normal 0.0-0.2 [facility] Comment on above: Performed By: #### C DP, BMPX, TROPI #### [facility] [address] [place] [address] Tube Making Machine Operator: Gonzalez Jackson MD Abs.Neutrophil (Seg) 5.80 k/uL Normal 2.5-7.0 [facility] Comment on above: Performed By: #### C DP, BMPX, TROPI #### [facility] [address] [place] [address] Tube Making Machine Operator: Gonzalez Jackson MD Auto Diff Performed YES Normal [facility] Comment on above: Performed By: #### C DP, BMPX, TROPI #### [facility] [address] [place] [address] Tube Making Machine Operator: Gonzalez Jackson MD Basophils/100 WBC (Bld) 1 % Normal 0-2 [facility] Comment on above: Performed By: #### C DP, BMPX, TROPI #### [facility] [address] [place] [address] Tube Making Machine Operator: Gonzalez Jackson MD Eosinophils (Bld) [#/Vol] 0.00 10*3/uL Normal 0.0-0.4 [facility] Comment on above: Performed By: #### C DP, BMPX, TROPI #### [facility] [address] [place] [id number] Tube Making Machine Operator: Gonzalez Jackson MD Eosinophils/100 WBC (Bld) 1 % Normal 0-5 [facility] Comment on above: Performed By: #### C DP, BMPX, TROPI #### [facility] [address] [place] [id number] [employer] Making Machine Operator: Gonzalez Jackson MD Erythrocyte distribution width (RBC) [Ratio] 18.3 % High 12.1-15.2 [facility] Comment on above: Performed By: #### C DP, BMPX, TROPI #### [facility] [address] [place] [id number] [employer] Machine Operator: Gonzalez Jackson MD Hematocrit (Bld) [Volume fraction] 36.9 % Normal 36-46 [facility] Comment on above: Performed By: #### C DP, BMPX, TROPI #### [facility] [address] [place] [id number] [employer] Making Machine Operator: Gonzalez Jackson MD Hemoglobin (Bld) [Mass/Vol] 12.1 g/dL Normal 12.0-16.0 [facility] Comment on above: Performed By: #### C DP, BMPX, TROPI #### [facility] [address] [place] [id number] [employer]ube Making Machine Operator: Gonzalez Jackson MD Lymphocytes (Bld) [#/Vol] 3.50 10*3/uL Normal 1.0-4.8 [facility] Comment on above: Performed By: #### C DP, BMPX, TROPI #### [facility] [address] [place] [address] Tube Making Machine Operator: Gonzalez Jackson MD Lymphocytes/100 WBC (Bld) 35 % Normal 15-40 [facility] Comment on above: Performed By: #### C DP, BMPX, TROPI #### [facility] [address] [place] [phone] Tube Making Machine Operator: Gonzalez Jackson MD MCH (RBC) [Entitic mass] 31.1 pg Normal 26-34 [facility] Comment on above: Performed By: #### C DP, BMPX, TROPI #### [facility] [address] [place] [phone] Tube Making Machine Operator: Gonzalez Jackson MD MCHC (RBC) [Mass/Vol] 32.9 g/dL Normal 31-37 [facility] Comment on above: Performed By: #### C DP, BMPX, TROPI #### [facility] [address] [place] [address] Tube Making Machine Operator: Gonzalez Jackson MD MCV (RBC) [Entitic vol] 94.6 fL Normal 80-100 [facility] Comment on above: Performed By: #### C DP, BMPX, TROPI #### [facility] [address] [place] [id number] Tube Making Machine Operator: Gonzalez Jackson MD Monocytes (Bld) [#/Vol] 0.70 10*3/uL Normal 0.0-1.0 [facility] Comment on above: Performed By: #### C DP, BMPX, TROPI #### [facility] [address] [place] [address] Tube Making Machine Operator: Gonzalez Jackson MD Monocytes/100 WBC (Bld) 7 % Normal 4-8 [facility] Comment on above: Performed By: #### C DP, BMPX, TROPI #### [facility] [address] [place] [address] Tube Making Machine Operator: Gonzalez Jackson MD Neutrophil (Seg) 56 % Normal 47-75 [facility] Comment on above: Performed By: #### C DP, BMPX, TROPI #### [facility] [address] [place] [address] Tube Making Machine Operator: Gonzalez Jackson MD Platelets (Bld) [#/Vol] 309 10*3/uL Normal 140-450 [facility] Comment on above: Performed By: #### C DP, BMPX, TROPI #### [facility] [address] [place] [address] Tube Making Machine Operator: Gonzalez Jackson MD RBC (Bld) [#/Vol] 3.90 10*6/uL Low 4.0-5.2 [facility] Comment on above: Performed By: #### C DP, BMPX, TROPI #### [facility] [address] [place] [phone] Tube Making Machine Operator: Gonzalez Jackson MD WBC (Bld) [#/Vol] 10.1 10*3/uL Normal 3.5-11.0 [facility] Comment on above: Performed By: #### C DP, BMPX, TROPI #### [facility] [address] [place] [address] Tube Making Machine Operator: Gonzalez Jackson MD Abs.Imm.Granulocyte NOT REPORTED Normal 0.00-0.30 [facility] Comment on above: Performed By: #### C DP, BMPX, TROPI #### [facility] [address] [place] [phone] Tube Making Machine Operator: Gonzalez Jacksno MD Immature granulocytes (Bld) [#/Vol] NOT REPORTED Normal 0 [facility] Comment on above: Performed By: #### C DP, BMPX, TROPI #### [facility] [address] [place] [address] Tube Making Machine Operator: Gonzalez Jackson MD NRBC Automated NOT REPORTED Normal [facility] Comment on above: Performed By: #### C DP, BMPX, TROPI #### [facility] [address] [place] [address] Tube Making Machine Operator: Gonzalez Jackson MD Platelet mean volume (Bld) [Entitic vol] NOT REPORTED Normal 6.0-12.0 [facility] Comment on above: Performed By: #### C DP, BMPX, TROPI #### [facility] [address] [place] [address] Tube Making Machine Operator: Gonzalez Jackson MD Platelets (Bld) [#/Vol] NOT REPORTED Normal [facility] Comment on above: Performed By: #### C DP, BMPX, TROPI #### [facility] [address] [place] [address] Tube Making Machine Operator: Gonzalez Jackson MD RBC morphology finding Nom (Bld) NOT REPORTED Normal [facility] Comment on above: Performed By: #### C DP, BMPX, TROPI #### [facility] [address] [place] [address] Tube Making Machine Operator: Gonzalez Jackson MD WBC Morphology NOT REPORTED Normal [facility] Comment on above: Performed By: #### C DP, BMPX, TROPI #### [facility] [address] [place] [address] Tube Making Machine Operator: Gonzalez Jackson MD CT HEAD WO [...] Devante Weber DO 08/15/19 Final result Normal [facility] CT Head WO Contraston 2019 Cholesterol in LDL [Mass/Vol] There is an area of low density within the anterior basal ganglia on the left. This is most likely ischemic and is of indeterminate age. Intracranial hemorrhage or midline shift is not observed. A follow-up brain MRI is recommended. [place] EXAMINATION: CT HEAD WITHOUT CONTRAST REASON [...] calcifications are noted at the skull base. [place] Mehrdad, Mhpn Incoming Radiant Results From [employer] - 08/15/2019 4:18 PM EST EXAMINATION: CT [...] observed. A follow-up brain MRI is recommended. [place] Other 08-15-2019 Immature granulocytes (Bld) [#/Vol] NOT REPORTED [place] Troponinon 08-15-2019 Troponin I.cardiac [Mass/Vol] ng/mL Normal <0.03 [facility] Comment on above: Result Comment: Trop onin T results cannot be compared to Troponin-I results. Performed By: #### C DP, BMPX, TROPI #### [facility] [address] [place] [address] Tube Making Machine Operator: Gonzalez Jackson MD Troponin I.cardiac [Mass/Vol] Normal [facility] Comment on above: Result Comment: Refe rence [...] By: #### C DP, BMPX, TROPI #### [facility] [address] [place] [address] Tube Making Machine Operator: Gonzalez Jackson MD Troponin I.cardiac [Mass/Vol] NOT REPORTED Normal 0-14 [facility] Comment on above: Performed By: #### C DP, BMPX, TROPI #### [facility] [address] [place] [address] Tube Making Machine Operator: Gonzalez Jackson MD Troponin I.cardiac [Mass/Vol] [place] Comment on above: Reference Range: <0.03 [...] diagnosis. Troponin T.cardiac [Mass/Vol] ug/L <0.03 ng/mL [place] Comment on above: Troponin T results c annot be compared to Troponin-I results. Troponin, High Sensitivity NOT REPORTED 0 - 14 ng/L [place] XR ANKLE LEFT (MIN 3 VIEWS)o [...] Devante Quiñonez MD 08/15/19 Final result Normal [facility] No acute fracture or dislocation of the left ankle. [place] Mehrdad, Mhpn Incoming Radiant Results From [employer] - 08/15/2019 3:22 PM EST EXAM: XR ANKLE LEFT (MIN 3 VIEWS) HISTORY: Reason for exam:->pain to lateral malleolus COMPARISON: None. FINDINGS: There is no acute fracture or dislocation of the left ankle. Ankle mortise appears normal. There is bimalleolar soft tissue thickening. Plantar calcaneal spur. IMPRESSION: No acute fracture or dislocation of the left ankle. [place] EXAM: XR ANKLE LEFT (MIN 3 VIEWS) HISTORY: Reason for exam:->pain to lateral malleolus COMPARISON: None. FINDINGS: There is no acute fracture or dislocation of the left ankle. Ankle mortise appears normal. There is bimalleolar soft tissue thickening. Plantar calcaneal spur. [place] XR CHEST PORTABLEon 08-15-19 20 XR CHEST PORTABLE EXAM: XR CHEST PORTABLE HISTORY: Reason for exam:->hypotension, dizziness COMPARISON: 06/23/2019 FINDINGS: Cardiomediastinal silhouette is unchanged in size and configuration. Bibasilar atelectasis. No focal consolidation, sizable effusions or pneumothorax. IMPRESSION: Cardiomegaly without acute cardiopulmonary process. Interpreted by: Devante Quiñonez MD Signed by: Devante Quiñonez MD 08/15/19 Final result Normal [facility] Cardiomegaly without acute cardiopulmonary process. [place] EXAM: XR CHEST PORTABLE HISTORY: Reason for exam:->hypotension, dizziness COMPARISON: 06/23/2019 FINDINGS: Cardiomediastinal silhouette is unchanged in size and configuration. Bibasilar atelectasis. No focal consolidation, sizable effusions or pneumothorax. [place] Mehrdad, Mhpn Incoming Radiant Results From [employer] - 08/15/2019 6:48 PM EST EXAM: XR CHEST PORTABLE HISTORY: Reason for exam:->hypotension, dizziness COMPARISON: 06/23/2019 FINDINGS: Cardiomediastinal silhouette is unchanged in size and configuration. Bibasilar atelectasis. No focal consolidation, sizable effusions or pneumothorax. IMPRESSION: Cardiomegaly without acute cardiopulmonary process. [place] Vital Signs Date Time Vital Sign Value Performing Clinician Clem desir 05-30-2024 14:29-0500 Body height 167.6 cm Kole Ellison DPM Work Phone: [facility] 05-30-2024 14:29-0500 Body mass index (BMI) [Ratio] 46.65 kg/m2 Kole Ellison DPM Work Phone: [facility] 05-30-2024 14:29-0500 Body weight 131.09 kg Kole MANZANARESM Work Phone: [facility] 05-30-2024 14:29-0500 Respiratory rate 16 /min Kole Ellison DPM Work Phone: [facility] 02-22-2024 12:06-0400 Body height 167.6 cm Kole Ellison DPM Work Phone: [facility] 02-22-2024 12:06-0400 Body mass index (BMI) [Ratio] 46.65 kg/m2 Kole Ellison DPM Work Phone: [facility] 02-22-2024 12:06-0400 Body weight 131.09 kg Kole Ellison DPM Work Phone: [facility] 02-22-2024 12:06-0400 Diastolic blood pressure 81 mm[Hg] Kole Ellison DPM Work Phone: [facility] 02-22-2024 12:06-0400 Heart rate 74 /min Koel Ellison DPM Work Phone: [facility] 02-22-2024 12:06-0400 Respiratory rate 18 /min Kole Ellison DPM Work Phone: [facility] 02-22-2024 12:06-0400 Systolic blood pressure 130 mm[Hg] Kole Ellison DPM Work Phone: [facility] 11-04-2021 12:30-0400 Body height 167.64 cm Arnol Demarco Other [employer] Other 11-04-2021 12:30-0400 Body mass index (BMI) [Ratio] 54.87 kg/m2 Arnol Demarco Other [employer] Other 11-04-2021 12:30-0400 Body temperature 98.8 [degF] Arnol Demarco Other [employer] Other 11-04-2021 12:30-0400 Body weight 154.22 kg Arnol Demarco Other [employer] Other 11-04-2021 12:30-0400 Diastolic blood pressure 74 mm[Hg] Arnol Demarco Other [employer] Other 11-04-2021 12:30-0400 Respiratory rate 20 /min Arnol Demarco Other [employer] Other 11-04-2021 12:30-0400 SaO2% (BldA) [Mass fraction] 94 % Arnol Demarco Other [employer] Other 11-04-2021 12:30-0400 Systolic blood pressure 128 mm[Hg] Arnol Demarco Other [employer] Other 08-15-2019 18:35-0500 BP Diastolic 72 mm[Hg] [facility] 08-15-2019 18:35-0500 BP Systolic 99 mm[Hg] [facility] 08-15-2019 18:35-0500 Pulse (Heart Rate) 94 /min [facility] 08-15-2019 18:35-0500 Pulse Oximetry 97 % [facility] 08-15-2019 18:35-0500 Respiratory Rate 16 /min [facility] 08-15-2019 14:49-0500 BMI (Body Mass Index) 50.36 kg/m2 [facility] 08-15-2019 14:49-0500 Body weight 141.52 kg [facility] 08-15-2019 14:49-0500 Height 167.6 cm [facility] 08-15-2019 14:41-0500 Body Temperature 98.2 [degF] [facility] [place] [place] Encounters Encounter Date Encounter Type Care Provider Facility Start: 05-30-2024 End: 05-30-2024 ambulatory KOLE ELLISON Not Available Start: 05-30-2024 End: 05-30-2024 Patient encounter procedure Kole Ellison DPM Work Phone: [facility] Comment on above: Type 2 diabetes sharita itus without complication, with long-term current use of insulin (CMS/[facility]) (Primary Dx); Onychomycosis; Toe pain, left; Toe [...] complication, with long-term current use of insulin (CMS/[facility]) (Primary Dx); Onychomycosis; Toe pain, bilateral; Xerosis cutis Start: 12-07-2023 End: 12-07-2023 ambulatory KOLE ELLISON Not Available Start: 09-21-2023 End: 09-21-2023 ambulatory KOLE ELLISON Not Available Start: 07-13-2023 End: 07-13-2023 ambulatory KOLE Diallo DARNELL Not Available Start: 02-03-2022 End: 02-03-[address] ELLEN MARRERO Facility:[facility] Start: 12-14-[address] ELLEN MARRERO Facility :[facility] Start: 11-04-2021 End: 11-04-2021 ambulatory Arnol Demarco Other [email or web address] Other Start: 11-04-2021 Follow-up encounter Arnol Romero rg [facility] Vascular Surgery Start: 07-13-2021 End: 07-14-[address] ELLEN MARRERO Facility:[facility] Start: 06-07-2021 End: 06-08-2021 ambulatory ASHLEYAMNNY MURPHY Facility:[facility] Start: 08-15-2019 End: 08-15-2019 Emergency department patient visit [facility] Start: 08-15-2019 End: 08-15-2019 Emergency department patient visit Kwesi Watts Work Phone: [facility] ED Procedures Date Procedure Procedure Detail Performing [...] panel ELLEN HOCaleb Start: 08-15-2019 ORTHOSTATIC BLOOD LA ESSURE AND PULSE ELLEN HOY Start: 08-15-2019 [...] procedure 08/15/2024 2:10 PM EST Procedure Visit [facility] [address] [facility] [address] [place] [id number] Kole Ellison, DPM [address] [address] [facility] Start: 05-02-2024 End: 05-02-2024 Patient encounter procedure 05/02/2024 11:50 AM EST Procedure Visit [facility] [address] [place] [address] [place] [phone] Kole Ellison, DPM [address] [address] [facility] Start: 02-18-2024 Influenza vaccination Influenza Vacc ine (#1) [facility] Start: 05-22-2021 Pneumococcal Vaccine : 65+ Years (2 of 2 - PCV) Pneumococcal Vaccine: 65+ Years (2 of 2 - PCV) [facility] Start: 08-15-2019 Annual Wellness Visi t (AWV) Annual Wellness Visit (AWV) [place] Start: 02-17-2019 Influenza vaccination Flu vaccine (# 1) [place] Start: 2018 DEXA (modify frequen cy per FRAX score) DEXA (modify frequency per FRAX score) [place] Start: 2018 Pneumococcal 65+ yea rs Vaccine (1 of 1 - PPSV23) Pneumococcal 65+ years Vaccine (1 of 1 - PPSV23) [place] Start: 2003 Breast cancer screen Breast cancer s creen [place] Start: 2003 Colon cancer screen colonoscopy Colon cancer screen colonoscopy [place] Start: 2003 Shingles Vaccine (1 of 2) Shingles Vaccine (1 of 2) [place] Start: 1993 Diabetes screen Diabetes screen [place], [place] Start: 1993 Lipid screen Lipid screen [place], [place] Start: 1993 Screening for malign ant neoplasm of breast Mammogram [facility] Start: 1964 DTaP/Tdap/Td vaccine (1 - Tdap) DTaP/Tdap/Td vaccine (1 - Tdap) [place] Start: 1953 Creatinine monitoring Creatinine mon itoring [place] Start: 1953 Hepatitis C screen Hepatitis C scree n [place] Start: 1953 Potassium monitoring Potassium monit oring [place] Start: 1953 Screening for malign ant neoplasm of colon [facility] EKG 12 Lead EKG 12 Lead ECG STAT 08/15/2019 2:41 PM EST [place] End: 08-15-2019 Urinalysis, reflex to microscopic Urinalysis, reflex to microscopic Lab STAT One Time for 1 Occurrences starting 08/15/2019 until 08/15/2019 [place] Comment on above: One Time for 1 Occur rences starting 08/15/2019 until 08/15/2019 Immunizations Immunization Date Immunization Notes Care Provider Evy whipple 03-10-2021 influenza virus vacc ine, unspecified formulation Kole Ellison DPM Work Phone: [facility] Payers Date Payer Category Payer Medicare ANTHEM MEDICARE ADVANTAGE ANTH MEDICARE ADVANTAGE [id number] 2021-Present [address] [place] [address] [id number] 2021 Medicare (Managed Care) RAJAT SHANNON ADVANTAGE [id number] 2018 Medicare MEDICARE MEDICAR E PART A AND B xxxxxxxxxxx 2018-Present [phone] [address] [address] [place] [address] xxxxxxxxxxx [id number] 2018 Medicare [id number] 2018 Private Health Insurance [employer] xxxxxxxx 2018-Present [phone] [place] [address] xxxxxxxx [id number] 2018 Private Health Insurance [id number] 1959 Medicare [id number] 1959 Self-pay 1955 Unknown [id number] 1953 Unknown [id number] 1953 Unknown [id number] 1953 Unknown [id number] 1953 Unknown [id number] 1953 Unknown [id number] .1259 1953 Unknown [id number] 1953 Unknown [id number] .1259 1953 Unknown [id number] .1259 1953 Unknown [id number] Social History Date Type Detail Facility Start: 08-15-2019 Tobacco smoking stat [facility] Former smoker [place], [place] Start: 1955 Sex Assigned At Not on file [place] Start: 12-07-2023 End: 02-22-2024 Sex Assigned At [facility] [employer] Other Start: 06-19-2007 Tobacco smoking stat [facility] Smokes tobacco daily [facility] Start: 06-19-2007 [...] and negative PT pedal pulses NEURO: 5.07 [place] Jaime monofilament test diminished to digits and forefoot bilaterally 125Hz tuning fork diminished to 1st MPJ bilaterally ORTHO: Positive pain on palpation to nails 1 through 10 ASSESSMENT 1. Type 2 diabetes mellitus without complication, with long-term current use of insulin ([facility]) 2. Onychomycosis 3. Toe pain, left 4. [...] creams to feet p.r.n. and to use [id number] creams at this time if possible Kole [...] Morbid obesity with BMI of 45.0-49.9, adult (CMS/[facility]) Neuropathy in diabetes (CMS/HCC) OC (onychocryptosis) OM [...] and negative PT pedal pulses NEURO: 5.07 [place] Jaime monofilament test diminished to digits and forefoot bilaterally 125Hz tuning fork diminished to 1st MPJ bilaterally ORTHO: Positive pain on palpation to nails 1 through 10 ASSESSMENT 1. Type 2 diabetes mellitus without complication, with long-term current use of insulin ([facility]) 2. Onychomycosis 3. Toe pain, bilateral 4. [...] creams to feet p.r.n. and to use [id number] creams at this time if possible Kole Ellison DPM documented in this encounter [facility] Healthcare Evaluation note 11-04-2021 Note Date [...] agrees with this plan, denies any questions. [email or web address] Other History general Narrative - Reported 08-19-2019 Note Date & Type Note Facility 08-19-2019 History general N arrative - Reported Type Medical History diabetes mallitus Medical History hypertension Medical History Atrial fibrillation Surgical History Left carotid endarterectomy 08-18 Surgical History cartaract surgery, bilateral Hospitalization History breathing, copd, bronchitis, pnuemonia [email or web address] Other Evaluation note Note Date & Type Note Facility Evaluation note Diagnosis Type 2 diabetes mellitus without complication, with long-term current use of insulin ([facility])- Primary Onychomycosis Dermatophytosis of nail Toe pain, left Pain in soft tissues of limb Toe pain, right Pain in soft tissues of limb Xerosis cutis Other specified disease of sebaceous glands documented in this encounter [facility] Healthcare Evaluation note Note Date & Type Note Facility Evaluation note Diagnosis Type 2 diabetes mellitus without complication, with long-term current use of insulin ([facility])- Primary Onychomycosis Dermatophytosis of nail Toe pain, bilateral Xerosis cutis Other specified disease of sebaceous glands documented in this encounter [facility] Healthcare Advance Directives Documents on File Type Date Recorded 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 DATE CREATED AUTHOR AUTHOR'S ORGANIZ ATION 06/02/2024 [facility] d[facility] Specialists [facility] Care Teams (unrecognized sec tion and content) Soda Drier Feeder Relationship Specialty Start Date End Date Ellen Marrero MD [address] [place] [address] PCP - General Family Medicine 11/17/22 S[employer] Drier Feeder Relationship Specialty Start Date End Date Ellen Marrero MD [address] [place] [phone] PCP - General Family Medicine 11/17/22 Soda Drier Feeder Relationship Specialty Start Date End Date Ellen Marrero MD [address] [place] [address] PCP - General Family Medicine 11/17/22 FOR [...] BE BASED ON THE PRIMARY CLINICAL RECORDS. [employer] provides no warranty or guarantee of the accuracy or completeness of information in this document.
[2024-08-03] MEDS: APIXABAN 5 MG TABLET PO (23:05)
[2024-08-04] VITALS (20 sets, daily range): BP systolic 128–162; BP diastolic 75–87; PULSE 60–125; TEMP 36.4–36.8; O2SAT 89–96
[2024-08-04 06:45] LABS: Hematocrit 40.7 % (36.0-48.0); Hemoglobin 13.7 g/dL (12.0-16.0); Immature Granulocytes Abs Auto 0.04 10^3/uL (0.00-0.03); Immature Granulocytes Pct Auto 0.7 % (0.0-0.5); Lymphocytes Absolute Auto 0.6 10^3/uL (1.2-3.8); Lymphocytes Percent Auto 10.9 % (20.5-60.0); Mean Corpuscular HGB Conc 33.7 g/dL (29.9-35.2); Mean Corpuscular Hemoglobin 32.1 pg (26.7-34.0); Mean Corpuscular Volume 95.3 fL (81.0-99.0); Mean Platelet Volume 9.5 fL (9.5-13.5); Monocytes Absolute Auto 0.1 10^3/uL (0.3-0.8); Monocytes Percent Auto 1.5 % (1.7-12.0); Neutrophils Absolute Auto 4.8 10^3/uL (1.4-6.5); Neutrophils Percent Auto 86.9 % (43.0-75.0); Platelet Count 210 10^3/uL (150-450); Red Blood Count 4.27 10^6/uL (4.20-5.40); Red Cell Distribution Width 12.6 % (11.0-15.0); White Blood Count 5.5 10^3/uL (4.0-11.0)
[2024-08-04 07:28] LABS: INR 1.05; Partial Thromboplastin Time 28.6 sec (22.3-36.2); Prothrombin Time 11.1 sec (9.0-11.6)
[2024-08-04 07:44] LABS: Anion Gap 9.5; BUN Creatinine Ratio 20.4; Calcium 8.9 mg/dL (8.5-10.1); Carbon Dioxide 35.9 mmol/L (21.0-32.0); Chloride 100 mmol/L (98-107); Estimated GFR (African America >60 (>=60 mL/min/1.73m^2); Estimated GFR (Non-African Ame 53 (>=60 mL/min/1.73m^2); Glucose 254 mg/dL (74-106); Potassium 3.4 mmol/L (3.5-5.1); Sodium 142 mmol/L (136-145)
[2024-08-04] MEDS: BUMETANIDE 1 MG/4 ML VIAL IVP (08:39)
[2024-08-04] MEDS: FLUOXETINE HCL 20 MG CAPSULE PO (08:40)
[2024-08-04] MEDS: ASPIRIN 81 MG TAB.CHEW PO (08:40)
[2024-08-04] MEDS: HYDROCHLOROTHIAZIDE 25 MG TABLET PO (08:40)
[2024-08-04] MEDS: DILTIAZEM HCL 180 MG CAP.ER.24H PO (08:40)
[2024-08-04] MEDS: ATORVASTATIN CALCIUM 40 MG TABLET PO (08:40)
[2024-08-04] MEDS: LISINOPRIL 20 MG TABLET 40 MG PO (08:40)
[2024-08-04] MEDS: APIXABAN 5 MG TABLET PO ×2 (08:40→20:02)
[2024-08-04] MEDS: ALBUTEROL SULFATE 2.5 MG/3 ML VIAL NEB IH ×2 (11:44→17:28)
[2024-08-04] MEDS: METHYLPREDNISOLONE SOD SUCC PF 125 MG/2 ML VIAL 60 MG IVP ×3 (12:04→23:37)
--- NOTE | 2024-08-04 13:39 | PC.NURSE ---
Lila RN notified of pts Telemetry tracing intermittent and tracing afib. Artifact noted as well and then tracing disappears briefly then reappears. Nurse Lila states pt has hx of Afib and physician is aware. Patches and leads have been changed today and tracing is still intermittent at times. pt currently sitting up in chair eating lunch.
--- NOTE | 2024-08-04 14:48 | PM.HP ---
HPI H&P: HPI History of Present Illness Chief complaint: SOB, CHF Narrative: 69 y/o female to ER with SOB. Admitted 07/29-07/31 with pneumonia and COPD exacerbation. Never completely recovered since home. Continued to have SOB with exertion. Frequent dry cough. SOB worsened and to ER. SpO2 87% on room air. Chest x-ray appears to show fluid overload and BNP elevated. Started IV bumex and admitted. Continues to have chest tightness and SOB this am. Opioid HPI Opioid Management Most Recent Pain and Opioid Data: Last Pain Scale 0 07/31/24 10:31 07/31/24 Last Pain Assessment 08/04/24 16:00 Last ORT Total Score 0 08/03/24 21:51 08/03/24 Last ORT Risk Category Low Risk 08/03/24 21:51 08/03/24 Review of Systems ROS Constitutional Denies: fever, chills or fatigue Cardiovascular Denies: chest pain, palpitations or edema Respiratory Reports: shortness of breath, cough and wheezing Gastrointestinal Denies: abdominal pain, nausea, vomiting or diarrhea Genitourinary Denies: painful urination PFSH PFSH Medical History (Updated 08/04/24 @ 11:43 by Juan Schofield MD) COPD (chronic obstructive pulmonary disease) ?J44.9 - Chronic obstructive pulmonary disease, unspecified (ICD-10) Pneumonia ?J18.9 - Pneumonia, unspecified organism (ICD-10) Asthma exacerbation ?J45.901 - Unspecified asthma with (acute) exacerbation (ICD-10) A-fib ?I48.91 - Unspecified atrial fibrillation (ICD-10) Asthma ?J45.909 - Unspecified asthma, uncomplicated (ICD-10) Surgical History (Updated 07/29/24 @ 23:19 by Pooja Cantrell RN) H/O carotid endarterectomy ?Z98.890 - Other specified postprocedural states (ICD-10) Family History (Updated 07/29/24 @ 20:30 by Pooja Cantrell, CAROLE) Other Family history of CHF (congestive heart failure) Family history of hypertension Family history of stroke Social History (Updated 08/03/24 @ 21:58 by Abi Huang RN) Within the past year, how often did you have a drink containing alcohol: monthly or less Within the past year, how many standard drinks containing alcohol did you have on a typical day: 1 or 2 Within the past year, how often did you have six or more drinks on one occasion: never Total score: 0 Score interpretation: A score less than 3 is consistent with normal alcohol consumption. Smoking status: Former smoker Non-prescribed substance use: denies use Highest level of school completed/degree received: Master's degree Are you now , , , , never or living with a partner: never In a typical week, how many times do you talk on the telephone with family, friends, or neighbors: 3 or more times per week How often do you get together with friends or relatives: 3 or more times per week Little interest or pleasure in doing things: not at all Feeling down, depressed, or hopeless: not at all Do you think of yourself as: straight/heterosexual Gender Identity: female Meds Home Medications and Allergies Home Medications ?Medication ?Instructions ?Recorded ?Confirmed ?Type apixaban 5 mg tablet (Eliquis) 5 mg PO BID 07/29/24 08/03/24 History aspirin 81 mg chewable tablet 1 tab PO DAILY 07/29/24 08/03/24 History atorvastatin 40 mg tablet 40 mg PO DAILY 07/29/24 08/03/24 History diltiazem HCl 180 mg 180 mg PO DAILY 07/29/24 08/03/24 History capsule,extended release 24 hr (Cartia XT) fluoxetine 20 mg capsule 20 mg PO DAILY 07/29/24 08/03/24 History hydrochlorothiazide 25 mg tablet 25 mg PO DAILY 07/29/24 08/03/24 History lisinopril 40 mg tablet 40 mg PO DAILY 07/29/24 08/03/24 History albuterol sulfate 90 mcg/actuation 2 inh inhalation Q6H PRN shortness 07/30/24 08/03/24 Rx aerosol inhaler (Ventolin HFA) of breath or wheezing #8.5 grams prednisone 10 mg tablet 50 mg (5 x 10 mg) PO DAILY #47 tabs 07/30/24 08/03/24 Rx nebulizer and compressor #1 ea 07/31/24 08/03/24 Rx albuterol sulfate 2.5 mg/3 mL 2.5 mg inhalation Q6H PRN 08/04/24 08/04/24 History (0.083 %) solution for nebulization shortness of breath or wheezing Allergies Allergy/AdvReac Type Severity Reaction Status Date / Time clindamycin Allergy Intermediate Hives Verified 07/29/24 20:47 cephalexin (From Keflex) Allergy Unknown Hives Verified 08/03/24 17:24 ciprofloxacin Allergy Unknown Unknown Verified 08/03/24 17:24 Exam Constitutional Vital Signs, click to edit/add: Last Vital Signs Temp 98.1 F 08/04/24 12:00 Pulse 79 08/04/24 12:00 Resp 20 08/04/24 12:00 BP 132/80 08/04/24 12:00 Pulse Ox 89 L 08/04/24 12:00 O2 Del Method Room Air 08/04/24 12:00 O2 Flow Rate 1 08/04/24 11:44 Documenting provider has reviewed patient's vital signs: yes Common normals: no apparent distress, oriented x3 and alert HENMT Common normals: normocephalic Eye Common normals: PERRL and EOMs intact bilaterally Respiratory Auscultation: diminished lung sounds Cardio Common normals: regular rate, no gallops, no murmurs and no rub Rhythm: abnormal rhythm irregularly irregular GI Common normals: Normal to inspection, nondistended, normoactive bowel sounds present and non-tender Extremity General: edema (1+ bipedal edema) Results Labs Labs: Short CBC 08/03/24 08/04/24 Range/Units 17:35 06:12 WBC 9.6 5.5 (4.0-11.0) 10^3/uL Hgb 14.5 13.7 (12.0-16.0) g/dL Hct 43.2 40.7 (36.0-48.0) % Plt Count 218 210 (150-450) 10^3/uL BMP 08/03/24 08/04/24 17:35 06:12 Sodium 142 142 Potassium 3.6 3.4 L Chloride 100 100 Carbon Dioxide 34.8 H 35.9 H BUN 20.0 H 21.0 H Creatinine 1.06 H 1.03 H Glucose 196 H 254 H Calcium 9.1 8.9 Assessment and Plan Assessment and Plan (1) Fluid overload: (2) Congestive heart failure: (3) COPD exacerbation: (4) Acute hypoxic respiratory failure: (5) Hypertension: (6) Paroxysmal atrial fibrillation: Plan Continued SOB and appears to have fluid overload. Continue IV bumex and check echo. Start solu-medrol for COPD exacerbation and continue breathing treatments. Wean O2 as tolerated. Resume home medication. Plan for at least a 2 midnight stay for inpatient medically necessary services.
[2024-08-04] MEDS: TRAZODONE HCL 50 MG TABLET 25 MG PO (23:53)
[2024-08-05] VITALS (21 sets, daily range): BP systolic 109–163; BP diastolic 66–96; PULSE 62–138; TEMP 36.3–36.6; O2SAT 91–96
[2024-08-05] MEDS: METHYLPREDNISOLONE SOD SUCC PF 125 MG/2 ML VIAL 60 MG IVP ×3 (05:38→22:11)
[2024-08-05 05:41] LABS: Hematocrit 41.9 % (36.0-48.0); Hemoglobin 14.2 g/dL (12.0-16.0); Mean Corpuscular HGB Conc 33.9 g/dL (29.9-35.2); Mean Corpuscular Hemoglobin 32.4 pg (26.7-34.0); Mean Corpuscular Volume 95.7 fL (81.0-99.0); Mean Platelet Volume 9.6 fL (9.5-13.5); Platelet Count 238 10^3/uL (150-450); Red Blood Count 4.38 10^6/uL (4.20-5.40); Red Cell Distribution Width 12.7 % (11.0-15.0); White Blood Count 7.1 10^3/uL (4.0-11.0)
[2024-08-05] MEDS: ALBUTEROL SULFATE 2.5 MG/3 ML VIAL NEB IH (05:43)
[2024-08-05 05:58] LABS: INR 1.05; Partial Thromboplastin Time 26.8 sec (22.3-36.2); Prothrombin Time 11.1 sec (9.0-11.6)
[2024-08-05 06:04] LABS: Atypical Lymphocytes Abs Man 0.28; Lymphocytes Absolute Manual 0.42 10^3/uL (1.20-3.80); Monocytes Absolute Manual 0.07 10^3/uL (0.30-0.80); Segmented Neut Absolute Manual 6.31 10^3/uL (1.4-6.5)
[2024-08-05 06:09] LABS: Anion Gap 7.5; BUN Creatinine Ratio 28.2; Calcium 9.2 mg/dL (8.5-10.1); Carbon Dioxide 37.1 mmol/L (21.0-32.0); Chloride 99 mmol/L (98-107); Estimated GFR (African America 59 (>=60 mL/min/1.73m^2); Estimated GFR (Non-African Ame 49 (>=60 mL/min/1.73m^2); Glucose 217 mg/dL (74-106); Magnesium 2.1 mg/dL (1.8-2.4); Potassium 3.6 mmol/L (3.5-5.1); Sodium 140 mmol/L (136-145)
--- NOTE | 2024-08-05 06:54 | CA_ITS ---
Patient Name: TONIO CONN MR#: [id number] : 1955 Exam Date: 08/05/2024 Ordering Doctor: DR NANCI NARANJO . ECHOCARDIOGRAM REPORT PROCEDURE: CA ECHO DOPPLER COMPLETE INDICATIONS: CHF COMPARISON: None. DESCRIPTION: COMPLETE ECHOCARDIOGRAM Real-time transthoracic echocardiography with 2D, M-mode, spectral and color flow Doppler performed. QUALITY: Technical quality was adequate. LEFT VENTRICLE: Normal chamber size. Severe concentric left ventricular hypertrophy. LV EF: Global left ventricular systolic function is hyperdynamic; visual estimation of left ventricular ejection fraction is 65-70%. No significant wall motion abnormalities. DIASTOLIC: Grade II diastolic dysfunction. ATRIAL SEPTUM: Inadequately seen. LEFT ATRIUM: Severe dilatation. RIGHT ATRIUM: Moderate dilatation. RIGHT VENTRICLE: Mild dilatation. Normal right ventricular systolic function. TRICUSPID VALVE: Normal mobility and thickness. No stenosis with trivial regurgitation. Mild pulmonary hypertension.RVSP 36mmHg MITRAL VALVE: Normal mobility and thickness. No evidence of mitral valve stenosis. Mild mitral annular calcification. Trivial mitral regurgitation. AORTIC VALVE: Normal trileaflet appearance. Moderately calcified aortic valve with diminished mobility. Doppler velocity suggests mild to moderate aortic valve stenosis. DVI 0.4, LEAH 1.3cm2, Vmax 2.6m/s, mean gradient 13mmHg.No aortic regurgitation. AORTIC ROOT: Normal diameter and appearance. PULMONIC VALVE: Normal thickness and mobility. No stenosis. Trivial regurgitation. PERICARDIUM: No evidence of pericardial effusion. IVC: Collapses with inspirations. Normal size. CONCLUSION: 1. Global left ventricular systolic function is hyperdynamic; visually estimated ejection fraction is 65 to 70% 2. Right ventricle is mildly dilated with normal systolic function 3. Severe left ventricular hypertrophy 4. Grade 2, moderate diastolic dysfunction 5. Biatrial dilatation 6. Mildly elevated right ventricular systolic pressure; RVSP 36 mmHg 7. Mild to moderate aortic valve stenosis Adult Echocardiography Procedure Report Left Ventricle LVEDD (3.7 - 5.6 cm): 5.14 cm LVESD (2.2 - 4.0 cm): 3.72 cm LVIVS thickness (0.6 - 1.2 cm): 1.66 cm LVPW thickness (0.5 - 1.0 cm): 1.44 cm e': 0.08 m/s E - e': 10.70 LVOT Max Gradient: 3.75 mm[Hg] LVOT Area (cm2): 0.97 m/s Peak Velocity (LVOT): 0.97 m/s Mean Velocity (LVOT): 0.61 m/s LVOT Diameter 2.11 cm Left Atrium LA Volume Index (2D A2C): 58.10 ml/m2 Left Atrium Systolic Dimension: 4.75 cm Mitral Valve MV E to A Ratio: 1.62 Mitral Valve A-Wave Peak Velocity: 0.53 m/s Mitral Valve E-Wave Peak Velocity: 0.85 m/s Right Ventricle RV Internal Diastolic Dimension: 4.06 cm Aorta AO Root Diam: 3.68 cm Ascending Ao Diam: 3.32 cm Aortic Valve AoV Area (Peak Matthew): 1.30 cm2, 1.30 cm2 AoV Area (VTI): 1.58 cm2, 1.58 cm2 Peak Velocity(Antegrade Flow): 2.59 m/s Peak Gradient(Antegrade Flow): 26.78 mm[Hg] Mean Velocity(Antegrade Flow): 1.69 m/s Mean Gradient(Antegrade Flow): 13.44 mm[Hg] Velocity Time Integral: 41.39 cm Tricuspid Valve Peak Velocity (Regurgitant Flow): 1.96 m/s, 2.86 m/s, 2.68 m/s, 2.59 m/s Pulmonic Valve Mean Gradient: 5.28 mm[Hg] Mean Velocity: 1.10 m/s Peak Velocity: 1.47 m/s Peak Gradient: 8.67 mm[Hg] Right Atrium Right Atrium Systolic Pressure: 74.88 ml, 74.88 ml Dictated by: Jovanna Claros M.D. on 08/05/2024 at 14:06 Approved by: Jovanna Claros M.D. on 08/05/2024 at 14:09
--- NOTE | 2024-08-05 07:55 | P.PN_ITS ---
Progress Note: Subjective Subjective Interval history: Patient with significant labored breathing with any activity. Exam Constitutional Vital Signs, click to edit/add: Last Vital Signs Temp 97.5 F L 08/05/24 07:45 Pulse 71 08/05/24 07:45 Resp 18 08/05/24 07:45 BP 163/66 H 08/05/24 07:45 Pulse Ox 96 08/05/24 07:45 O2 Del Method Nasal Cannula 08/05/24 07:45 O2 Flow Rate 1 08/05/24 07:45 Documenting provider has reviewed patient's vital signs: yes Common normals: apparent distress (Mild respiratory distress with mild conversational dyspnea) Chest Common normals: inspection of chest normal Respiratory Common normals: abnormal respiratory effort (Mild return distress with mild conversational dyspnea) Auscultation: rales (More in bases), rhonchi (Diffuse) and wheezes GI Common normals: soft to palpation; negative for Normal to inspection, nondistended, normoactive bowel sounds present (Morbidly obese) Extremity Common normals: abnormal to inspection (1-2+ edema) Progress Note: Objective Labs Labs: Short CBC 08/05/24 Range/Units 05:14 WBC 7.1 (4.0-11.0) 10^3/uL Hgb 14.2 (12.0-16.0) g/dL Hct 41.9 (36.0-48.0) % Plt Count 238 (150-450) 10^3/uL BMP 08/05/24 05:14 Sodium 140 Potassium 3.6 Chloride 99 Carbon Dioxide 37.1 H BUN 31.0 H Creatinine 1.10 H Glucose 217 H Calcium 9.2 Progress Note: A&P Assessment and Plan (1) Fluid overload: (2) Congestive heart failure: (3) COPD exacerbation: (4) Acute hypoxic respiratory failure: (5) Hypertension: (6) Paroxysmal atrial fibrillation: Plan Sinus tachycardia, respiratory distress, uncontrolled hypertension with acute hypoxia (O2 sat of 87%), acute elevation in BNP with normal troponin, with acute combined congestive heart failure-only diuresed 1 L so far with a net of 500 cc, will try patient on prolonged Bumex drip. Check on echocardiogram Acute hypoxia with acute exacerbation of COPD with multifocal pneumonia on chest f-agm-espomokl aerosol frequency, maintain steroids, add antibiotics. Antibiotics added secondary to left shift on white blood cell count at admission Hypertension:-Maintain home medications Paroxysmal atrial fibrillation:-Maintain current anticoagulation Zbhfzdqsngj-liccpzmdwo-pnkwxu to normal Hyperglycemia-insulin sliding scale Hypercholesterolemia continue with home medications Depression-continue with home medications Hypertension maintain current medications Admission status: Patient with acute hypoxic respiratory failure secondary to acute exacerbation of COPD with multifocal pneumonia and complicated by acute combined congestive heart failure, medically necessary treatment will span 2 midnights. Maintain inpatient status
[2024-08-05] MEDS: APIXABAN 5 MG TABLET PO ×2 (09:07→21:43)
[2024-08-05] MEDS: DOXYCYCLINE MONOHYDRATE 100 MG CAPSULE PO ×2 (09:07→21:42)
[2024-08-05] MEDS: BUMETANIDE 10 MG in 0.9 % SODIUM CHLORIDE 160 ML IV (09:07)
[2024-08-05] MEDS: HYDROCHLOROTHIAZIDE 25 MG TABLET PO (09:07)
[2024-08-05] MEDS: LISINOPRIL 20 MG TABLET 40 MG PO (09:07)
[2024-08-05] MEDS: ATORVASTATIN CALCIUM 40 MG TABLET PO (09:07)
[2024-08-05] MEDS: ASPIRIN 81 MG TAB.CHEW PO (09:07)
[2024-08-05] MEDS: DILTIAZEM HCL 180 MG CAP.ER.24H PO (09:07)
[2024-08-05] MEDS: FLUOXETINE HCL 20 MG CAPSULE PO (09:07)
[2024-08-05 11:21] LABS: Glucometer 310 mg/dL (74-106)
[2024-08-05] MEDS: INSULIN ASPART 300 UNIT/3 ML PEN SUBQ ×3 (11:21→21:49)
--- NOTE | 2024-08-05 11:59 | SWNOTE1 ---
SW reviewed OT note and HH is recommended. SW to speak with pt. Pt is getting ECHO at this time, SW to stop back in.
--- NOTE | 2024-08-05 13:11 | SWNOTE1 ---
SW met with pt to discuss dc needs. Pt lives at home alone. Pt does have a neighbor that can help as needed. Pt uses a walker at home and has a chair lift at home as well. LUISITO explained to pt that home health is recommended at discharge. LUISITO explained what home health was. Pt is agreeable as long as it is under her insurance. SW explained they do bill through her insurance and usually get a certain number of visits. Pt voiced she would like to use someone with [facility]. LUISITO let her know that there is a [facility]. Pt would like to use them. Referral sent to [facility]. Referral included face sheet, ED note, H&P, provider notes, and PT/OT notes.
[2024-08-05] MEDS: IPRATROPIUM/ALBUTEROL SULFATE 3 ML AMPUL.NEB IH ×3 (15:51→23:21)
--- NOTE | 2024-08-05 15:55 | SWNOTE1 ---
Important Message from Medicare reviewed and discussed with patient. Pt. verbalized understanding and signed the form. Original given to patient and copy placed in patient?s chart.
[2024-08-05 16:04] LABS: Glucometer 251 mg/dL (74-106)
[2024-08-05] MEDS: TRAZODONE HCL 50 MG TABLET 25 MG PO (21:42)
[2024-08-05 21:47] LABS: Glucometer 357 mg/dL (74-106)
[2024-08-06] VITALS (21 sets, daily range): BP systolic 98–130; BP diastolic 54–81; PULSE 60–133; TEMP 36.3–36.6; O2SAT 91–95
[2024-08-06] MEDS: IPRATROPIUM/ALBUTEROL SULFATE 3 ML AMPUL.NEB IH ×5 (03:40→23:25)
[2024-08-06] MEDS: METHYLPREDNISOLONE SOD SUCC PF 125 MG/2 ML VIAL 60 MG IVP (05:00)
[2024-08-06 05:58] LABS: Basophils Percent Auto 0.1 % (0.2-2.0); Hematocrit 48.3 % (36.0-48.0); Immature Granulocytes Abs Auto 0.07 10^3/uL (0.00-0.03); Immature Granulocytes Pct Auto 0.8 % (0.0-0.5); Lymphocytes Absolute Auto 0.7 10^3/uL (1.2-3.8); Lymphocytes Percent Auto 7.7 % (20.5-60.0); Mean Corpuscular HGB Conc 33.1 g/dL (29.9-35.2); Mean Corpuscular Hemoglobin 31.5 pg (26.7-34.0); Mean Corpuscular Volume 95.1 fL (81.0-99.0); Mean Platelet Volume 9.5 fL (9.5-13.5); Monocytes Absolute Auto 0.2 10^3/uL (0.3-0.8); Monocytes Percent Auto 2.6 % (1.7-12.0); Neutrophils Absolute Auto 8.1 10^3/uL (1.4-6.5); Neutrophils Percent Auto 88.8 % (43.0-75.0); Platelet Count 329 10^3/uL (150-450); Red Blood Count 5.08 10^6/uL (4.20-5.40); Red Cell Distribution Width 12.7 % (11.0-15.0); White Blood Count 9.2 10^3/uL (4.0-11.0)
[2024-08-06 06:20] LABS: Anion Gap 8.3; BUN Creatinine Ratio 28.6; Calcium 9.4 mg/dL (8.5-10.1); Carbon Dioxide 41.1 mmol/L (21.0-32.0); Chloride 94 mmol/L (98-107); Estimated GFR (African America 40 (>=60 mL/min/1.73m^2); Estimated GFR (Non-African Ame 33 (>=60 mL/min/1.73m^2); Glucose 226 mg/dL (74-106); Sodium 141 mmol/L (136-145)
--- NOTE | 2024-08-06 06:23 | P.DS_ITS ---
DS: Providers Provider Date of admission: 08/03/24 20:54 Primary care physician: Alexander Marrero MD Consults: 08/05/24 07:05 Occupational Therapy Eval and Treat Routine Reason for consultation: Only if needed for Rehab Has provider been notified: No Physical Therapy Eval and Treat Routine Reason for consultation: Eval and Treat Has provider been notified: No DS: Diagnosis Discharge Diagnosis (1) Fluid overload: (2) Congestive heart failure: (3) COPD exacerbation: (4) Acute hypoxic respiratory failure: (5) Hypertension: (6) Paroxysmal atrial fibrillation: Plan Sinus tachycardia, respiratory distress, uncontrolled hypertension with acute hypoxia (O2 sat of 87%), acute elevation in BNP with normal troponin, with acute combined congestive heart failure-only diuresed 1 L so far with a net of 500 cc, will try patient on prolonged Bumex drip. Check on echocardiogram Acute hypoxia with acute exacerbation of COPD with multifocal pneumonia on chest r-wut-bflfvdwp aerosol frequency, maintain steroids, add antibiotics. Antibiotics added secondary to left shift on white blood cell count at admission Hypertension:-Maintain home medications Paroxysmal atrial fibrillation:-Maintain current anticoagulation Jfxavbnsmmc-xpirljhnrs-dimatv to normal Hyperglycemia-insulin sliding scale Hypercholesterolemia continue with home medications Depression-continue with home medications Hypertension maintain current medications Admission status: Patient with acute hypoxic respiratory failure secondary to acute exacerbation of COPD with multifocal pneumonia and complicated by acute combined congestive heart failure, medically necessary treatment will span 2 midnights. Maintain inpatient status ? DS: Summary Status at Discharge Overall status at discharge: patient is not back to baseline Time Spent with Patient Time attestation: Total time spent providing and/or coordinating discharge services: Time spent: greater than 30 minutes Exam Constitutional Vital Signs, click to edit/add: Last Vital Signs Temp 97.6 F 08/06/24 04:00 Pulse 120 H 08/06/24 05:59 Resp 20 08/06/24 04:00 BP 128/81 08/06/24 04:00 Pulse Ox 91 L 08/06/24 04:00 O2 Del Method Room Air 08/06/24 04:00 O2 Flow Rate 1 08/05/24 07:45 DS: Data Data Completed and Pending Labs on day of discharge: Labs from last 24 hours 08/06/24 08/05/24 08/05/24 05:36 21:46 16:01 WBC 9.2 RBC 5.08 Hgb 16.0 Hct 48.3 H MCV 95.1 MCH 31.5 MCHC 33.1 RDW 12.7 Plt Count 329 MPV 9.5 Neut % (Auto) 88.8 H Lymph % (Auto) 7.7 L Angelina % (Auto) 2.6 Eos % (Auto) 0.0 L Baso % (Auto) 0.1 L Neut # (Auto) 8.1 H Lymph # (Auto) 0.7 L Angelina # (Auto) 0.2 L Eos # (Auto) 0.0 Baso # (Auto) 0.0 Abs Immat Gran (auto) 0.07 H Imm/Tot Granulo (auto) 0.8 H POC Glucose 357 H 251 H 08/05/24 11:20 WBC RBC Hgb Hct MCV MCH MCHC RDW Plt Count MPV Neut % (Auto) Lymph % (Auto) Angelina % (Auto) Eos % (Auto) Baso % (Auto) Neut # (Auto) Lymph # (Auto) Angelina # (Auto) Eos # (Auto) Baso # (Auto) Abs Immat Gran (auto) Imm/Tot Granulo (auto) POC Glucose 310 H Preliminary micro results at discharge 08/03/24 18:50 Blood Culture Result 2 - Preliminary Blood - Left Antecubital NO GROWTH AT 36-48 HOURS. FINAL TO FOLLOW. 08/03/24 18:45 Blood Culture Result 1 - Preliminary Blood - Right Antecubital NO GROWTH AT 36-48 HOURS. FINAL TO FOLLOW. Discharge Plan Discharge Condition: Fair Discharge Medications: No Action Eliquis 5 mg tablet 5 mg PO BID aspirin 81 mg tablet,chewable 1 tab PO DAILY atorvastatin 40 mg tablet 40 mg PO DAILY fluoxetine 20 mg capsule 20 mg PO DAILY hydrochlorothiazide 25 mg tablet 25 mg PO DAILY lisinopril 40 mg tablet 40 mg PO DAILY diltiazem HCl [Cartia XT] 180 mg capsule,extended release 24hr 180 mg PO DAILY prednisone 10 mg tablet 50 mg PO DAILY Qty: 47 0RF Rx Instructions: 5/day for 3 days. 4/day for 3 days, 3/day for 3 days, 2/day for 3 days, 1/day for 3 days, 1/2 /day for 4 days albuterol sulfate [Ventolin HFA] 90 mcg/actuation HFA aerosol inhaler 2 inh inhalation Q6H PRN (Reason: shortness of breath or wheezing) Qty: 8.5 0RF (DME) nebulizer and compressor Device See Rx Instructions .Route Qty: 1 0RF Rx Instructions: As directed albuterol sulfate 2.5 mg /3 mL (0.083 %) solution for nebulization 2.5 mg inhalation Q6H PRN (Reason: shortness of breath or wheezing) Print Language: Indonesian
[2024-08-06 06:31] LABS: Potassium 2.4 mmol/L (3.5-5.1)
--- NOTE | 2024-08-06 07:22 | ECG_ITS ---
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: : [id number] Requested By: ELLEN DE LA GARZA Order Number: [id number] Reading MD: ELLEN DE LA GARZA Measurements Intervals [place] Rate: 106 P: [place]: QRS: -8 QRSD: 81 T: 120 QT: 284 QTc: 378 Interpretive Statements ATRIAL FIBRILLATION WITH RAPID VENTRICULAR RESPONSE WITH ABERRANT CONDUCTION OR VENTRICULAR PREMATURE COMPLEXES NONSPECIFIC ST & T-WAVE ABNORMALITY Compared to ECG 08/03/2024 17:33:30 Aberrant conduction of supraventricular beat(s) now present Ventricular premature complex(es) now present T-wave abnormality now present Sinus tachycardia no longer present Electronically Signed On 08-07-2024 7:18:27 EST by ELLEN DE LA GARZA
[2024-08-06] MEDS: POTASSIUM CHLORIDE 40 MEQ in 0.9 % SODIUM CHLORIDE 250 ML 67.5 MEQ IV (07:50)
[2024-08-06] MEDS: DOXYCYCLINE MONOHYDRATE 100 MG CAPSULE PO ×2 (07:51→21:24)
[2024-08-06] MEDS: ATORVASTATIN CALCIUM 40 MG TABLET PO (07:51)
[2024-08-06] MEDS: DILTIAZEM HCL 180 MG CAP.ER.24H PO (07:51)
[2024-08-06] MEDS: METOPROLOL SUCCINATE 50 MG TAB.ER.24H PO (07:51)
[2024-08-06] MEDS: ASPIRIN 81 MG TAB.CHEW PO (07:51)
[2024-08-06] MEDS: FLUOXETINE HCL 20 MG CAPSULE PO (07:51)
[2024-08-06] MEDS: HYDROCHLOROTHIAZIDE 25 MG TABLET PO (07:51)
[2024-08-06] MEDS: ISOSORBIDE MONONITRATE 30 MG TAB.ER.24H PO (07:51)
[2024-08-06] MEDS: APIXABAN 5 MG TABLET PO ×2 (07:52→21:23)
[2024-08-06] MEDS: BUMETANIDE 1 MG/4 ML VIAL IVP (07:52)
[2024-08-06] MEDS: 0.9 % SODIUM CHLORIDE 250 ML 10 ML IV (08:00)
[2024-08-06] MEDS: PREDNISONE 20 MG TABLET 30 MG PO (08:08)
[2024-08-06] MEDS: POTASSIUM CHLORIDE 10 MEQ ER TABLET 20 MEQ PO ×2 (08:08→21:23)
--- NOTE | 2024-08-06 10:11 | SWNOTE1 ---
[facility]
--- NOTE | 2024-08-06 10:22 | PT.DAILY ---
Physical Therapy Daily Note PT Daily Note/Assess Start: 08/06/24 10:12 Freq: Status: Active Protocol: Document 08/06/24 09:25 ROSANNE (Rec: 08/06/24 10:22 ROSANNE [id number]) Physical Therapy Daily Note/Assessment Time In/Time Out Time In 09:25 Time Out 09:44 Subjective Subjective Reports having problems with BP and HR this morning, but willing to try and do best. Nursing okays patient for RX as well. Therapeutic Exercise Time Therapeutic Exercise 9 Minutes (minutes) Therapeutic Exercise 0 Units Therapeutic Exercise Treatment Therapeutic Exercise Seated exercises B LE all planes 10 reps each. Treatment Therapeutic Activity Time Therapeutic Activity 10 Minutes (minutes) Therapeutic Activity 1 Units Therapeutic Activity Treatment Bed Mobility Ability Modified Independent Chair Transfer Modified Independent Ability Therapeutic Activity Use of bed rails to come up into sitting, but ind. Sit Comments to stand 3x Ind. Gait 50' without AD SBA. Occasional use of wall/handrail in jones, no LOB. Patient demonstrates SOB and fatigue at 25' but able to turn around and complete total of 50'. HR did increase to 173 BPM. Cues for relaxed breathing brought breathing and HR back to baseline. Total Physical Therapy Time Total Therapy 19 Minutes Total Physical 1 Therapy Units Summary Daily Note Summary Improved ability with ambulation distance today. 50' max distance. Becomes SOB, fatigued and increased HR. Was able to come back to baseline without 2-3 min of instructed deep breathing. Recommend PT at [place] to build up strength to be able to safely ambulate community distances vs just household distance.
[2024-08-06 12:05] LABS: Glucometer 249 mg/dL (74-106)
[2024-08-06] MEDS: INSULIN ASPART 300 UNIT/3 ML PEN SUBQ ×3 (12:12→21:24)
[2024-08-06] MEDS: BUMETANIDE 10 MG in 0.9 % SODIUM CHLORIDE 160 ML 20 MG IV (13:56)
--- NOTE | 2024-08-06 14:31 | P.PN_ITS ---
Progress Note: Subjective Subjective Interval history: Still with dyspnea with activity - even walking 12 feet in the room, gets tachy and Dyspnea Exam Constitutional Vital Signs, click to edit/add: Last Vital Signs Temp 97.9 F 08/06/24 08:13 Pulse 98 H 08/06/24 13:44 Resp 18 08/06/24 08:13 BP 98/54 08/06/24 08:13 Pulse Ox 93 L 08/06/24 11:53 O2 Del Method Room Air 08/06/24 11:53 O2 Flow Rate 1 08/05/24 07:45 Documenting provider has reviewed patient's vital signs: yes Common normals: apparent distress (Mild respiratory distress some better than previuos day) Chest Common normals: inspection of chest normal Respiratory Common normals: abnormal respiratory effort (mild conversational dyspnea - some better than previous day) Auscultation: rales (More in bases), rhonchi (Diffuse) and wheezes Cardio Rate: tachycardic Rhythm: abnormal rhythm GI Common normals: soft to palpation; negative for Normal to inspection, nondistended, normoactive bowel sounds present (Morbidly obese) Extremity Common normals: abnormal to inspection (1-2+ edema) Progress Note: Objective Labs Labs: Short CBC 08/06/24 Range/Units 05:36 WBC 9.2 (4.0-11.0) 10^3/uL Hgb 16.0 (12.0-16.0) g/dL Hct 48.3 H (36.0-48.0) % Plt Count 329 (150-450) 10^3/uL BMP 08/06/24 05:36 Sodium 141 Potassium 2.4 L* Chloride 94 L Carbon Dioxide 41.1 H BUN 44.0 H Creatinine 1.54 H Glucose 226 H Calcium 9.4 Progress Note: A&P Assessment and Plan (1) Fluid overload: (2) Congestive heart failure: (3) COPD exacerbation: (4) Acute hypoxic respiratory failure: (5) Hypertension: (6) Paroxysmal atrial fibrillation: Plan Sinus tachycardia, respiratory distress, uncontrolled hypertension with acute hypoxia (O2 sat of 87%), acute elevation in BNP with normal troponin, with acute combined congestive heart failure-only diuresed 1 L so far with a net of 500 cc, will try patient on prolonged Bumex drip. Check on echocardiogram Acute hypoxia with acute exacerbation of COPD with multifocal pneumonia on chest x-ray - WBC better - still dysppnea Acute combined CHF - good diuresis - add nitrates to the BBlocker -consider invokana - Hypertension:-Maintain home medications Paroxysmal atrial fibrillation:-Maintain current anticoagulation - HR up a bit - add bblocker Xbbgqquqoru-goucwhslgi-wfcyzl to normal Hyperglycemia-insulin sliding scale Hypercholesterolemia continue with home medications Depression-continue with home medications Hypertension maintain current medications Admission status: Patient with acute hypoxic respiratory failure secondary to acute exacerbation of COPD with multifocal pneumonia and complicated by acute combined congestive heart failure, medically necessary treatment will span 2 midnights. Maintain inpatient status
--- NOTE | 2024-08-06 16:32 | OT.DAILY ---
Occupational Therapy Daily Note OT Inpatient Daily Visit Note Start: 08/05/24 09:51 Freq: Status: Active Protocol: Document 08/06/24 16:22 [id number] (Rec: 08/06/24 16:32 [id number]) OT Visit Details Time In/Time Out Time In 15:15 Time Out 15:47 OT Treatment Plan Subjective Subjective Pt sitting up on EOB. Pt was scheduled for discharge this afternoon, was canceled due to remaining SOB. Pt reports she has been walking short distances around the room with significant SOB and wheezing. Pt agreeable to self-care at this time. Objective Objective Sitting on EOB Pt was set-up with supplies. Pt able to wash UB and hair appropriately. Good sitting balance reaching outside ROBERT. Minimal SOB during this task. Pt able to speak in full sentences while completing self- care tasks, no breaks. Maintaining airway on RA. Applied anti-perspirant. Good UB ROM and endurance when combing hair. Completed oral hygiene I while seated on EOB. Good sequencing. Assessment Assessment Pt tolerated treatment well. She stated that she did not feel comfortable returning home with remaining SOB and generalized weakness. Continue OT POC. Pt left sitting on EOB, call light within reach. OT Business Systems Analyst Timed Codes Self-Fpc 47 Management minutes ( minutes) Self-Fpc 3 Management units
[2024-08-06 16:54] LABS: Glucometer 292 mg/dL (74-106)
[2024-08-06 20:40] LABS: Glucometer 287 mg/dL (74-106)
[2024-08-06] MEDS: TRAZODONE HCL 50 MG TABLET 25 MG PO (21:23)
[2024-08-07] VITALS (11 sets, daily range): BP systolic 124–136; BP diastolic 63–69; PULSE 54–126; TEMP 36.4–36.7; O2SAT 90–95
[2024-08-07] MEDS: IPRATROPIUM/ALBUTEROL SULFATE 3 ML AMPUL.NEB IH ×3 (03:56→11:31)
[2024-08-07 07:09] LABS: Glucometer 177 mg/dL (74-106)
--- NOTE | 2024-08-07 07:48 | P.DS_ITS ---
DS: Providers Provider Date of admission: 08/03/24 20:54 Primary care physician: Alexander Marrero MD Consults: 08/05/24 07:05 Occupational Therapy Eval and Treat Routine Reason for consultation: Only if needed for Rehab Has provider been notified: No Physical Therapy Eval and Treat Routine Reason for consultation: Eval and Treat Has provider been notified: No DS: Diagnosis Discharge Diagnosis (1) Fluid overload: (2) Congestive heart failure: (3) COPD exacerbation: (4) Acute hypoxic respiratory failure: (5) Hypertension: (6) Paroxysmal atrial fibrillation: Plan Sinus tachycardia, respiratory distress, uncontrolled hypertension with acute hypoxia (O2 sat of 87%), acute elevation in BNP with normal troponin, with acute combined congestive heart failure-only diuresed 1 L so far with a net of 500 cc, will try patient on prolonged Bumex drip. Check on echocardiogram Acute hypoxia with acute exacerbation of COPD/asthma with multifocal pneumonia on chest x-ray -improving at the time of discharge Acute combined CHF - good diuresis -7 L diuresed as a net-improving at the time of discharge Hypertension:-Maintain home medications Paroxysmal atrial fibrillation:-Maintain current anticoagulation - HR up a bit - added bblocker, nitrates Hypokalemia-repeat testing pending today Yxdgpfxswrunj-tvbetvw-pxomgua-improving at the time of discharge Hypercholesterolemia continue with home medications Depression-continue with home medications Hypertension maintain current medications Admission status: Patient with acute hypoxic respiratory failure secondary to acute exacerbation of COPD with multifocal pneumonia and complicated by acute combined congestive heart failure, medically necessary treatment will span 2 midnights. Maintain inpatient status ? DS: Summary Hospital Course Hospital Course: Patient with recent diagnosis of acute exacerbation of COPD and asthma with due to pneumonia, was still been admitted and treated with antibiotics steroids and aerosol treatments, she was not hypoxic and she was discharged to home, at home she started having increasing shortness of breath, difficulty ambulating secondary to that, she presented with a multifocal pneumonia, treated with IV antibiotics and aerosol treatments also found to have significant fluid overload and was diuresed, Bumex drip x 2 occasions with good diuresis, a net of 7.2 L. She is able to ambulate with less dyspnea today, did not need supplemental oxygen at nighttime, sugar still elevated by the thinking this is still related to the steroids, at this point we will discharge patient home in improving condition. Medications see list. See me in the office in 2 days for close follow-up Rfcf-at-nrvv evaluation completed for bedside commode, patient with difficulty ambulating and her bathroom is on the second floor Time Spent with Patient Time attestation: Total time spent providing and/or coordinating discharge services: Exam Constitutional Vital Signs, click to edit/add: Last Vital Signs Temp 98.1 F 08/07/24 07:25 Pulse 75 08/07/24 07:25 Resp 20 08/07/24 07:25 BP 124/69 08/07/24 07:25 Pulse Ox 92 L 08/07/24 07:25 O2 Del Method Room Air 08/07/24 07:25 O2 Flow Rate 1 08/05/24 07:45 Documenting provider has reviewed patient's vital signs: yes Common normals: no apparent distress (No longer has conversational dyspnea) Chest Common normals: inspection of chest normal Respiratory Common normals: normal respiratory effort (No longer has respiratory distress) Auscultation: no rales, no rhonchi and no wheezes Cardio Rate: tachycardic Rhythm: abnormal rhythm GI Common normals: soft to palpation; negative for Normal to inspection, nondistended, normoactive bowel sounds present (Morbidly obese) Extremity Common normals: abnormal to inspection (1+ edema is probably her baseline is ) DS: Data Data Completed and Pending Labs on day of discharge: Labs from last 24 hours 08/07/24 08/06/24 08/06/24 07:08 20:39 16:53 POC Glucose 177 H 287 H 292 H 08/06/24 12:03 POC Glucose 249 H Preliminary micro results at discharge 08/03/24 18:50 Blood Culture Result 2 - Preliminary Blood - Left Antecubital NO GROWTH AT 36-48 HOURS. FINAL TO FOLLOW. 08/03/24 18:45 Blood Culture Result 1 - Preliminary Blood - Right Antecubital NO GROWTH AT 36-48 HOURS. FINAL TO FOLLOW. Discharge Plan Discharge Disposition: Home, Self-Care Condition: Fair Discharge Medications: New metoprolol succinate 50 mg Tablet Extended Release 24 Hr 50 mg PO QD Qty: 30 11RF isosorbide mononitrate 30 mg Tablet Extended Release 24 Hr 30 mg PO QD Qty: 30 11RF doxycycline monohydrate 100 mg Capsule 100 mg PO BID Qty: 20 0RF prednisone 10 mg tablet 30 mg PO DAILY Qty: 20 0RF Rx Instructions: 3/day for 3 days, 2/day for 3 days, 1/day for 3 days, 1/2 /day for 4 days Continued Eliquis 5 mg tablet 5 mg PO BID aspirin 81 mg tablet,chewable 1 tab PO DAILY atorvastatin 40 mg tablet 40 mg PO DAILY fluoxetine 20 mg capsule 20 mg PO DAILY hydrochlorothiazide 25 mg tablet 25 mg PO DAILY lisinopril 40 mg tablet 40 mg PO DAILY diltiazem HCl [Cartia XT] 180 mg capsule,extended release 24hr 180 mg PO DAILY prednisone 10 mg tablet 50 mg PO DAILY Qty: 47 0RF Rx Instructions: 5/day for 3 days. 4/day for 3 days, 3/day for 3 days, 2/day for 3 days, 1/day for 3 days, 1/2 /day for 4 days albuterol sulfate [Ventolin HFA] 90 mcg/actuation HFA aerosol inhaler 2 inh inhalation Q6H PRN (Reason: shortness of breath or wheezing) Qty: 8.5 0RF (DME) nebulizer and compressor Device See Rx Instructions .Route Qty: 1 0RF Rx Instructions: As directed albuterol sulfate 2.5 mg /3 mL (0.083 %) solution for nebulization 2.5 mg inhalation Q6H PRN (Reason: shortness of breath or wheezing) Print Language: Tunisian Forms: Portal Instructions
[2024-08-07 08:09] LABS: Anion Gap 13.3; BUN Creatinine Ratio 33.6; Calcium 9.4 mg/dL (8.5-10.1); Carbon Dioxide 38.9 mmol/L (21.0-32.0); Chloride 94 mmol/L (98-107); Estimated GFR (African America 26 (>=60 mL/min/1.73m^2); Estimated GFR (Non-African Ame 22 (>=60 mL/min/1.73m^2); Glucose 187 mg/dL (74-106); Potassium 3.2 mmol/L (3.5-5.1); Sodium 143 mmol/L (136-145)
[2024-08-07] MEDS: METOPROLOL SUCCINATE 50 MG TAB.ER.24H PO (08:10)
[2024-08-07] MEDS: ATORVASTATIN CALCIUM 40 MG TABLET PO (08:10)
[2024-08-07] MEDS: DOXYCYCLINE MONOHYDRATE 100 MG CAPSULE PO (08:10)
[2024-08-07] MEDS: ASPIRIN 81 MG TAB.CHEW PO (08:10)
[2024-08-07] MEDS: APIXABAN 5 MG TABLET PO (08:10)
[2024-08-07] MEDS: HYDROCHLOROTHIAZIDE 25 MG TABLET PO (08:10)
[2024-08-07] MEDS: LISINOPRIL 20 MG TABLET 40 MG PO (08:10)
[2024-08-07] MEDS: POTASSIUM CHLORIDE 10 MEQ ER TABLET 20 MEQ PO (08:10)
[2024-08-07] MEDS: FLUOXETINE HCL 20 MG CAPSULE PO (08:10)
[2024-08-07] MEDS: DILTIAZEM HCL 180 MG CAP.ER.24H PO (08:10)
[2024-08-07] MEDS: PREDNISONE 20 MG TABLET 30 MG PO (08:10)
[2024-08-07] MEDS: ISOSORBIDE MONONITRATE 30 MG TAB.ER.24H PO (08:10)
--- NOTE | 2024-08-07 09:24 | SWNOTE1 ---
Pt needs bedside commode as her bathroom is on the first floor. SW to send script and face to face information to [facility]. Pt is all set with [facility].
--- NOTE | 2024-08-07 09:35 | SWNOTE1 ---
Face sheet, DME order form, and face to face in discharge summary faxed to [facility] for bedside commode.
--- NOTE | 2024-08-07 09:50 | SWNOTE1 ---
LUISITO faxed over dc med rec, dc summary, CRF, and OT note from yesterday to [facility]. LUISITO spoke with pt and provided her with [facility] phone number and contact. SW let her know that information has been sent to [facility] to get her a bedside commode and SW will update her once [facility] reaches back out.
[2024-08-07] MEDS: PNEUMOC 20-VAL CONJ-DIP CRM/PF 0.5 ML SYRINGE IM (11:42)
--- NOTE | 2024-08-07 11:45 | PT.DAILY ---
Physical Therapy Daily Note PT Daily Note/Assess Start: 08/06/24 10:12 Freq: Status: Active Protocol: Document 08/07/24 11:44 FIDEL (Rec: 08/07/24 11:45 [id number] [id number]) Visit Not Completed Visit Not Completed Visit Not Completed Other Due to: Other Reason Visit Pt with another provider for both attempts to see her Not Completed this morning. Pt's plan is to be DC home with HH today. Physical Therapy Daily Note/Assessment Time In/Time Out Time In 11:43 Time Out 11:43 Pain In Pain N/A Pain Out Pain N/A GG. Functional Abilities and Goals-Complete for Swing Bed Patients Only [id number]. Self-Care [id number]. Mobility
--- NOTE | 2024-08-07 11:58 | SWNOTE1 ---
SW called [facility], had to leave message in regards to bedside commode.
--- NOTE | 2024-08-07 13:34 | SWNOTE1 ---
LUISITO called [employer] 3 times, no answer. SW to keep trying to call. LUISITO updated patient and let her know that SW will call her no matter what once LUISITO hears back from [facility]. She voiced understanding.
--- NOTE | 2024-08-07 13:51 | SWNOTE1 ---
LUISITO called [facility] again and spoke to Ondina. She stated they are having computer issues and several walk ins she has had to assist. She stated she is working on the commode and she will call LUISITO back once she hears back from insurance.
--- NOTE | 2024-08-07 14:25 | SWNOTE1 ---
LUISITO received a call from [facility] and she stated the insurance has stated the documentation does not reflect the need for a bedside commode. LUISITO let Dr. Marrero know and called and spoke with patient.
--- NOTE | 2024-08-07 14:31 | SWNOTE1 ---
LUISITO left message for pt, advised that insurance is not going to pay for bedside commode at this time. In message LUISITO advised to call back with any further questions and that a commode can be bought out of pocket at any DME store or [facility].
--- NOTE | 2024-08-07 14:35 | SWNOTE1 ---
Pt did call back and she did voice understanding that bedside commode is not covered by insurance.
--- NOTE | 2024-08-08 14:12 | CM.DCFOLLOWU ---
Person spoke with: Georgiana How are you feeling? Having some nausea off and on. Home Health scheduled to come out in the AM. Pt feeling better this afternoon How is your pain? No pain Did you understand your discharge instructions? Yes Do you have any questions about your discharge instructions? No Were you given any prescriptions at discharge? Yes Were you able to get your prescriptions filled? Yes Do you understand how to take your medications as ordered? Yes Do you have any questions about your follow up appointment and do you plan to keep your follow up appointment? No it's already scheduled with Dr. Marrero Is there anything else that you would like to discuss? No Questions/Comments/Concerns/Other:
== END 2024-08-07 14:29 | disposition home health service (06) | DRG 291 ==
LOC: ER 20:35 → MS 20:57
PROVIDERS: Registered Nurse; Admitting Provider Family Medicine; Emergency Provider Emergency Medicine; PCP Family Medicine; Visit Provider Family Medicine
DX: I11.0 Hypertensive heart disease with heart failure (principal); I50.41 Acute combined systolic (congestive) and diastolic (congestive) heart failure; J18.9 Pneumonia, unspecified organism; J96.01 Acute respiratory failure with hypoxia; J44.1 Chronic obstructive pulmonary disease with (acute) exacerbation; J45.901 Unspecified asthma with (acute) exacerbation; J44.0 Chronic obstructive pulmonary disease with (acute) lower respiratory infection; Z68.43 Body mass index [BMI] 50.0-59.9, adult; R00.0 Tachycardia, unspecified; Z79.01 Long term (current) use of anticoagulants; E78.00 Pure hypercholesterolemia, unspecified; R73.9 Hyperglycemia, unspecified; T38.0X5A Adverse effect of glucocorticoids and synthetic analogues, initial encounter; I48.0 Paroxysmal atrial fibrillation; Z79.82 Long term (current) use of aspirin; Z79.899 Other long term (current) drug therapy; E66.01 Morbid (severe) obesity due to excess calories; E87.6 Hypokalemia; F32.A Depression, unspecified
CPT/HCPCS: 36415; 71045; 80048; 82948; 83735; 83880; 84484; 85007; 85025; 85027; 85610; 85730; 87040; 87070; 87804; 87811; 90677; 93005; 93306; 94640; 94667; 94668; 94761; 96374; 96375; 96376; 97161; 97165; 97530; 97535; 99285; J1940; J2919; J3480; J7512